=== PATIENT | male | born 1985 | race Caucasian/White ===

== ENCOUNTER 2017-03-22 17:13 | Emergency (ER) | payer MEDICAID, OTHER ==
[2017-03-22 17:27] LABS: ADD MAN DIFF? NO
[2017-03-22 17:29] LABS: WHITE BLOOD COUNT 5.8 10^3/ul (4.8-10.8)
[2017-03-22 17:29] LABS: BASOPHIL # 0.1 10^3/ul (0.0-0.1); EOSINOPHILS # 0.2 10^3/ul (0.0-0.5); EOSINOPHILS % 4.1 % (0.0-7.0); HEMATOCRIT 43.7 % (42.0-52.0); HEMOGLOBIN 15.4 g/dl (14.0-18.0); LYMPHOCYTES # 2.2 10^3/ul (0.8-2.9); LYMPHOCYTES % 38.2 % (15.0-51.0); MEAN CORPUSCULAR HEMOGLOBIN 32.6 pg (29.0-33.0); MEAN CORPUSCULAR HGB CONC 35.2 g/dl (32.0-37.0); MEAN CORPUSCULAR VOLUME 92.6 fl (82.0-101.0); MEAN PLATELET VOLUME 9.4 fl (7.4-10.4); MONOCYTE # 0.3 10^3/ul (0.3-0.9); MONOCYTES % 5.2 % (0.0-11.0); NEUTROPHILS % 51.3 % (39.0-77.0); PLATELET COUNT 355 10^3/UL (140-415); RED BLOOD COUNT 4.72 10^6/ul (4.70-6.10); RED CELL DISTRIBUTION WIDTH 12.7 % (11.5-14.5)
[2017-03-22] MEDS: SOD CHLORIDE 0.9% 1,000 ML IV (17:33)
[2017-03-22 17:54] LABS: ADD UMIC NO; UR ASCORBIC ACID NEGATIVE (NEGATIVE); UR BILIRUBIN (Dip) NEGATIVE (NEGATIVE); UR BLOOD (Dip) NEGATIVE (NEGATIVE); UR CLARITY CLEAR (CLEAR); UR COLOR STRAW (YELLOW); UR GLUCOSE (Dip) NEGATIVE (NEGATIVE); UR KETONES (Dip) NEGATIVE (NEGATIVE); UR LEUKOCYTE ESTERASE (Dip) NEGATIVE Leu/ul (NEGATIVE); UR NITRITE (Dip) NEGATIVE (NEGATIVE); UR SPECIFIC GRAVITY (Dip) 1.005 (1.003-1.030); UR TOTAL PROTEIN (Dip) NEGATIVE (NEGATIVE); UR UROBILINOGEN (Dip) NEGATIVE (NEGATIVE)
[2017-03-22] MEDS: ONDANSETRON 4 MG INJ IV (17:55)
[2017-03-22 17:58] LABS: ALANINE AMINOTRANSFERASE 31 IU/L (13-69); ALBUMIN 4.7 g/dl (3.3-4.9); ALBUMIN/GLOBULIN RATIO 1.34; ALKALINE PHOSPHATASE 89 IU/L (42-121); ANION GAP 20 (8-16); ASPARTATE AMINO TRANSFERASE 31 IU/L (15-46); BILIRUBIN,INDIRECT 0.2 mg/dl (0-1.1); BILIRUBIN,TOTAL 0.2 mg/dl (0.2-1.3); BLOOD UREA NITROGEN 6 mg/dl (7-20); CALCIUM 8.5 mg/dl (8.4-10.2); CARBON DIOXIDE 26 mmol/L (21-31); CHLORIDE 107 mmol/L (97-110); CREATININE 0.77 mg/dl (0.61-1.24); GLUCOSE 109 mg/dl (70-220); POTASSIUM 3.9 mmol/L (3.5-5.1); SODIUM 149 mmol/L (135-144); TOTAL PROTEIN 8.2 g/dl (6.1-8.1)
[2017-03-22 17:59] LABS: ACETAMINOPHEN < 10.0 ug/ml (10.0-30.0); SALICYLATE < 1.0 mg/dl (5.0-30.0)
[2017-03-22 18:08] LABS: AMPHETAMINE/METHAMPHETAMINE Negative (NEGATIVE)
[2017-03-22 18:09] LABS: BARBITURATES Negative (NEGATIVE); BENZODIAZEPINES Negative (NEGATIVE); CANNABINOIDS Negative (NEGATIVE); COCAINE Negative (NEGATIVE); OPIATES Negative (NEGATIVE)
== END 2017-03-22 19:13 | disposition home or self-care (01) ==
LOC: E/R 17:13
DX: F10.920 Alcohol use, unspecified with intoxication, uncomplicated (principal); G93.40 Encephalopathy, unspecified; R40.2142 Coma scale, eyes open, spontaneous, at arrival to emergency department; R40.2362 Coma scale, best motor response, obeys commands, at arrival to emergency department; R93.0 Abnormal findings on diagnostic imaging of skull and head, not elsewhere classified
CPT/HCPCS: 36415; 70450; 80053; 80306; 80307; 81003; 85025; 96374; 99285-25

== ENCOUNTER 2018-02-20 20:02 | Inpatient (IN) | payer MEDICAID ==
[2018-02-20] MEDS ORDERED: NALOXONE (0.4 MG/ML) INJ (20:06)
[2018-02-20] MEDS: ETOMIDATE 20 MG INJ IV (20:15)
[2018-02-20 20:29] LABS: ADD MAN DIFF? NO
[2018-02-20 20:33] LABS: WHITE BLOOD COUNT 20.2 10^3/ul (4.8-10.8)
[2018-02-20 20:33] LABS: HEMATOCRIT 46.6 % (42.0-52.0); HEMOGLOBIN 15.1 g/dl (14.0-18.0); MEAN CORPUSCULAR HEMOGLOBIN 32.5 pg (29.0-33.0); MEAN CORPUSCULAR HGB CONC 32.4 g/dl (32.0-37.0); MEAN CORPUSCULAR VOLUME 100.2 fl (82.0-101.0); MEAN PLATELET VOLUME 10.2 fl (7.4-10.4); NUCLEATED RED BLOOD CELLS% 0.1 /100WBC (0.0-0.0); PLATELET COUNT 229 10^3/UL (140-415); POSITIVE DIFF @See below; RED BLOOD COUNT 4.65 10^6/ul (4.70-6.10); RED CELL DISTRIBUTION WIDTH 13.2 % (11.5-14.5)
[2018-02-20] MEDS: CEFEPIME 2GM/50 ML (PMX) 50 ML IVPB (20:43)
[2018-02-20] MEDS: SODIUM CHLORIDE 0.9% 1L BAG IV* (20:43)
[2018-02-20 20:49] LABS: ADD UMIC YES; UR ASCORBIC ACID NEGATIVE (NEGATIVE); UR BILIRUBIN (Dip) NEGATIVE (NEGATIVE); UR BLOOD (Dip) NEGATIVE (NEGATIVE); UR CLARITY SLIGHTLY CLOUDY (CLEAR); UR COLOR YELLOW (YELLOW); UR GLUCOSE (Dip) 3+ mg/dL (NEGATIVE); UR KETONES (Dip) NEGATIVE (NEGATIVE); UR LEUKOCYTE ESTERASE (Dip) NEGATIVE Leu/ul (NEGATIVE); UR NITRITE (Dip) NEGATIVE (NEGATIVE); UR RBC 0 /HPF (0-5); UR SPECIFIC GRAVITY (Dip) 1.018 (1.003-1.030); UR TOTAL PROTEIN (Dip) 1+ mg/dl (NEGATIVE); UR UROBILINOGEN (Dip) NEGATIVE (NEGATIVE); UR WBC 1 /HPF (0-5)
[2018-02-20 20:51] LABS: ALBUMIN 3.3 g/dl (3.3-4.9); ALBUMIN/GLOBULIN RATIO 1.17; ALKALINE PHOSPHATASE 101 IU/L (42-121); ANION GAP 20 (5-13); BILIRUBIN,INDIRECT 0.2 mg/dl (0-1.1); BILIRUBIN,TOTAL 0.2 mg/dl (0.2-1.3); BLOOD UREA NITROGEN 27 mg/dl (7-20); CALCIUM 7.3 mg/dl (8.4-10.2); CARBON DIOXIDE 13 mmol/L (21-31); CHLORIDE 115 mmol/L (97-110); CREATININE 2.91 mg/dl (0.61-1.24); Estimated GFR 25 mL/min (>60); GLUCOSE 157 mg/dl (70-220); SODIUM 148 mmol/L (135-144); TOTAL PROTEIN 6.1 g/dl (6.1-8.1)
[2018-02-20 20:53] LABS: ACETAMINOPHEN < 10.0 ug/ml (10.0-30.0)
[2018-02-20 20:54] LABS: SALICYLATE < 1.0 mg/dl (5.0-30.0)
[2018-02-20 20:58] LABS: AMPHETAMINE/METHAMPHETAMINE Positive (NEGATIVE); BARBITURATES Negative (NEGATIVE); BENZODIAZEPINES Negative (NEGATIVE); CANNABINOIDS Positive (NEGATIVE); COCAINE Negative (NEGATIVE); OPIATES Positive (NEGATIVE)
[2018-02-20] MEDS: ROCURONIUM 50 MG INJ IV (20:58)
[2018-02-20] MEDS: VANCOMYCIN 1 GM (PMX) 250 ML IVPB (21:24)
[2018-02-20] MEDS: MIDAZOLAM 1 MG/ML 2 ML INJ IV (21:24)
[2018-02-20 21:27] LABS: ALANINE AMINOTRANSFERASE 5039 IU/L (13-69); ASPARTATE AMINO TRANSFERASE 6223 IU/L (15-46); CREATINE KINASE 9300 IU/L (23-200)
[2018-02-20 21:51] LABS: AADO2 Arterial 580.3 mmHg (7.0-24.0); Allen Test ACCEPTAB; Arterial Base Excess -18.9 mmol/L (-3.0-3); Arterial Blood Gas Oxygen Sat 91.2 mmHG (95.0-98.0); Arterial COHb 0.1 % (0.0-3.0); Arterial Fraction of Oxyhgb 90.8 % (93.0-99.0); Arterial HCO3 11.9 mmol/L (22.0-26.0); Arterial MetHb 0.3 % (0.0-1.5); Arterial pCO2 47.1 mmhg (35-45); MODE VENT - AC; Site Right Radial
[2018-02-20] MEDS ORDERED: ALBUTEROL HFA 8 GM INHALER INH (22:00)
[2018-02-20] MEDS ORDERED: IPRATROPIUM (HFA) 12.9 GM INHALER INH (22:00)
[2018-02-20 22:05] LABS: PLATELET COUNT 184 10^3/UL (140-415)
[2018-02-20 22:11] LABS: INR 2.72; PROTIME 29.6 Sec (11.9-14.9); PT RATIO 2.3
[2018-02-20 22:12] LABS: PARTIAL THROMBOPLASTIN TIME 39.9 Sec (23.0-35.0)
[2018-02-20 22:20] LABS: FIBRIN SPLIT PRODUCT >10 and <40 ug/ml (<10)
[2018-02-20 22:30] LABS: D-DIMER 8363.85 ng/ml (<460)
[2018-02-20 22:36] LABS: MAGNESIUM 2.6 mg/dl (1.7-2.5)
[2018-02-20 22:37] LABS: BAND NEUTROPHILS % (M) 25 % (0-4); LYMPHOCYTES % (M) 5 % (15-51); METAMYELOCYTES #M 0.4 10^3/ul (0.0-0.0); METAMYELOCYTES %M 2 % (0-0); MONOCYTE #M 0.6 10^3/ul (0.3-0.9); MONOCYTES % (M) 3 % (0-11); PLATELET ESTIMATE NORMAL; POIKILOCYTOSIS 1+ (0-0); REACTIVE LYMPHOCYTES #M 0.8 10^3/ul (0.0-0.0); REACTIVE LYMPHOCYTES% (M) 4 % (0-0); SEG NEUT #M 13.3 10^3/ul (1.6-7.5); SEGMENTED NEUTROPHILS (M) % 61 % (39-77); SMUDGE%M 11 % (0-0)
[2018-02-20] MEDS: POTASSIUM CHLORIDE 100 ML IVPB (22:38)
[2018-02-20] MEDS: PANTOPRAZOLE 40 MG INJ IV (22:38)
[2018-02-20] MEDS: SOD CHLORIDE 0.9% 1,000 ML IV ×2 (22:39→23:26)
[2018-02-20 23:07] LABS: THROMBIN TIME 18.8 SEC (13.8-19.1)
[2018-02-20 23:12] LABS: HAAIG REFLEX REFLEX FILED
[2018-02-20] MEDS: MIDAZOLAM (DRIP) 50 mg/50 mL 50 ML IV (23:27)
[2018-02-20 23:34] LABS: AADO2 Arterial 580.9 mmHg (7.0-24.0); Allen Test ACCEPTAB; Arterial Base Excess -17.9 mmol/L (-3.0-3); Arterial Blood Gas Oxygen Sat 90.6 mmHG (95.0-98.0); Arterial COHb 0.3 % (0.0-3.0); Arterial Fraction of Oxyhgb 90.1 % (93.0-99.0); Arterial HCO3 12.9 mmol/L (22.0-26.0); Arterial MetHb 0.3 % (0.0-1.5); MODE VENT - AC; Site Left Radial
[2018-02-20 23:52] LABS: HEPATITIS B SURFACE ANTIGEN NEGATIVE (NEGATIVE)
[2018-02-21] MEDS ORDERED: VANCOMYCIN IV PER PHARMACY XX
[2018-02-21] MEDS: FENTAnyl 50 MCG/ML VIAL IV (00:09)
[2018-02-21 00:10] LABS: HEPATITIS B CORE ANTIBODY NEGATIVE (NEGATIVE); HEPATITIS C VIRAL ANTIBODY NEGATIVE (NEGATIVE)
[2018-02-21] MEDS: INSULIN ASPART [NOVOLOG] 3 ML PEN SC ×6 (01:00→20:39)
[2018-02-21 01:12] LABS: LACTIC ACID 4.5 mmol/L (0.5-2.0)
[2018-02-21] MEDS: POTASSIUM CHLORIDE 100 ML IVPB ×5 (02:00→07:00)
[2018-02-21] MEDS ORDERED: ACCU-CHEK XX (02:00)
[2018-02-21] MEDS: SOD CHLORIDE 0.9% 1,000 ML IV ×5 (02:00→21:30)
[2018-02-21 02:24] LABS: CK INDEX 0.7; CREATINE KINASE 66598 IU/L (23-200)
[2018-02-21 02:43] LABS: AADO2 Arterial 531.5 mmHg (7.0-24.0); Allen Test ACCEPTAB; Arterial Base Excess -14.5 mmol/L (-3.0-3); Arterial Blood Gas Oxygen Sat 97.9 mmHG (95.0-98.0); Arterial COHb 0.3 % (0.0-3.0); Arterial Fraction of Oxyhgb 97.3 % (93.0-99.0); Arterial HCO3 13.8 mmol/L (22.0-26.0); Arterial MetHb 0.3 % (0.0-1.5); Arterial pCO2 40.2 mmhg (35-45); MODE VENT - AC; Site Right Radial
[2018-02-21] MEDS: ALBUMIN HUMAN 25% 100 ML IV ×2 (02:52→03:30)
[2018-02-21 03:42] LABS: LACTIC ACID 2.7 mmol/L (0.5-2.0)
[2018-02-21] MEDS: PIPER-TAZO 3.375 GM IV (PMX) 100 ML IVPB ×4 (04:00→22:49)
[2018-02-21] MEDS: THIAMINE 200 MG INJ IM (04:00)
[2018-02-21 05:03] LABS: ABNORMAL IP MESSAGE 1; HEMATOCRIT 43.4 % (42.0-52.0); HEMOGLOBIN 14.3 g/dl (14.0-18.0); MEAN CORPUSCULAR HEMOGLOBIN 32.4 pg (29.0-33.0); MEAN CORPUSCULAR HGB CONC 32.9 g/dl (32.0-37.0); MEAN CORPUSCULAR VOLUME 98.4 fl (82.0-101.0); PLATELET COUNT 113 10^3/UL (140-415); POSITIVE DIFF @See below; RED BLOOD COUNT 4.41 10^6/ul (4.70-6.10); RED CELL DISTRIBUTION WIDTH 12.9 % (11.5-14.5)
[2018-02-21 05:03] LABS: WHITE BLOOD COUNT 21.2 10^3/ul (4.8-10.8)
[2018-02-21] MEDS: MIDAZOLAM (DRIP) 50 mg/50 mL 50 ML IV (05:11)
[2018-02-21 05:25] LABS: ADD MAN DIFF? YES
[2018-02-21 05:26] LABS: PLATELET COUNT 113 10^3/UL (140-415)
[2018-02-21 05:29] LABS: INR 2.64; PROTIME 28.9 Sec (11.9-14.9); PT RATIO 2.3
[2018-02-21 05:36] LABS: ALBUMIN 3.3 g/dl (3.3-4.9); ALBUMIN/GLOBULIN RATIO 1.26; ALKALINE PHOSPHATASE 85 IU/L (42-121); ANION GAP 14 (5-13); BILIRUBIN,INDIRECT 0.5 mg/dl (0-1.1); BILIRUBIN,TOTAL 0.5 mg/dl (0.2-1.3); BLOOD UREA NITROGEN 42 mg/dl (7-20); CALCIUM 6.8 mg/dl (8.4-10.2); CARBON DIOXIDE 15 mmol/L (21-31); CHLORIDE 120 mmol/L (97-110); CREATININE 2.97 mg/dl (0.61-1.24); Estimated GFR 25 mL/min (>60); GLUCOSE 182 mg/dl (70-220); POTASSIUM 5.5 mmol/L (3.5-5.1); SODIUM 149 mmol/L (135-144); TOTAL PROTEIN 5.9 g/dl (6.1-8.1)
[2018-02-21 05:46] LABS: PARTIAL THROMBOPLASTIN TIME 37.4 Sec (23.0-35.0)
[2018-02-21 05:47] LABS: THROMBIN TIME 18.1 SEC (13.8-19.1)
[2018-02-21 06:11] LABS: LACTIC ACID 2.4 mmol/L (0.5-2.0)
[2018-02-21] MEDS: PANTOPRAZOLE 40 MG INJ IV ×2 (06:16→18:09)
[2018-02-21 06:19] LABS: D-DIMER > 10000.00 ng/ml (<460)
[2018-02-21 06:20] LABS: INR 2.64; PROTIME 28.9 Sec (11.9-14.9); PT RATIO 2.3
[2018-02-21 06:40] LABS: ANISOCYTOSIS 1+ (0-0); BAND NEUTROPHILS #M 2.3 10^3/ul (0.0-0.6); BAND NEUTROPHILS % (M) 11 % (0-4); GIANT THROMBO% (M) 1 % (0-0); LYMPHOCYTES #M 1.2 10^3/ul (0.8-2.9); LYMPHOCYTES % (M) 6 % (15-51); MICROCYTOSIS 1+ (0-0); MONOCYTE #M 0.4 10^3/ul (0.3-0.9); MONOCYTES % (M) 2 % (0-11); PLATELET ESTIMATE DECREASED; SEG NEUT #M 17.7 10^3/ul (1.6-7.5); SEGMENTED NEUTROPHILS (M) % 81 % (39-77); SMUDGE%M 1 % (0-0)
[2018-02-21 07:12] LABS: FIBRIN SPLIT PRODUCT >40 and <80 ug/ml (<10)
[2018-02-21 08:06] LABS: POTASSIUM 6.6 mmol/L (3.5-5.1)
[2018-02-21] MEDS: FENTAnyl (DRIP) 1000 mcg/100mL 100 ML IV ×2 (08:15→22:48)
[2018-02-21] MEDS: NA POLYST SULFON 15 GM/60 ML BTL PO (08:21)
[2018-02-21 08:32] LABS: CK INDEX 0.9; CREATINE KINASE 88413 IU/L (23-200)
[2018-02-21 08:55] LABS: AADO2 Arterial 255.8 mmHg (7.0-24.0); Allen Test ACCEPTAB; Arterial Base Excess -17.9 mmol/L (-3.0-3); Arterial Blood Gas Oxygen Sat 99.1 mmHG (95.0-98.0); Arterial COHb 0.3 % (0.0-3.0); Arterial Fraction of Oxyhgb 97.8 % (93.0-99.0); Arterial HCO3 10.2 mmol/L (22.0-26.0); Arterial pCO2 31.8 mmhg (35-45); MODE VENT - AC; Site Right Radial
[2018-02-21] MEDS: INSULIN REGULAR, HUMAN 100 UNIT/1 ML 3ML VIAL IVP (09:08)
[2018-02-21] MEDS: DEXTROSE 50% 50 ML SYRINGE IV (09:09)
[2018-02-21] MEDS ORDERED: NA BICARBONATE 8.4% 50 ML SYG (09:23)
[2018-02-21] MEDS: NA BICARBONATE 8.4% 50 ML SYG IV (09:30)
[2018-02-21 09:57] LABS: ALANINE AMINOTRANSFERASE 6218 IU/L (13-69)
[2018-02-21 10:19] LABS: ASPARTATE AMINO TRANSFERASE > 7500 IU/L (15-46)
[2018-02-21] MEDS: SODIUM BICARBONATE (IV ADD) 100 MEQ in DEXTROSE 5% 1,000 ML IV ×2 (11:08→20:28)
[2018-02-21 12:44] LABS: ANION GAP 13 (5-13); BLOOD UREA NITROGEN 52 mg/dl (7-20); CALCIUM 6.1 mg/dl (8.4-10.2); CARBON DIOXIDE 15 mmol/L (21-31); CHLORIDE 116 mmol/L (97-110); CREATININE 3.28 mg/dl (0.61-1.24); Estimated GFR 22 mL/min (>60); GLUCOSE 269 mg/dl (70-220); POTASSIUM 5.5 mmol/L (3.5-5.1); SODIUM 144 mmol/L (135-144)
[2018-02-21 12:58] LABS: LACTIC ACID 5.2 mmol/L (0.5-2.0)
[2018-02-21 13:12] LABS: CK-MB > 800.00 ng/ml (0.0-2.4)
[2018-02-21 13:36] LABS: CK INDEX 0.8
[2018-02-21 15:05] LABS: AADO2 Arterial 82.6 mmHg (7.0-24.0); Allen Test ACCEPTAB; Arterial Base Excess -7.9 mmol/L (-3.0-3); Arterial Blood Gas Oxygen Sat 96.5 mmHG (95.0-98.0); Arterial COHb 0 % (0.0-3.0); Arterial Fraction of Oxyhgb 96.3 % (93.0-99.0); Arterial HCO3 17.8 mmol/L (22.0-26.0); Arterial MetHb 0.2 % (0.0-1.5); Arterial pCO2 37.4 mmhg (35-45); MODE VENT - AC; Site Right Radial
[2018-02-21] MEDS ORDERED: HEPARIN 5,000 UNIT/0.5 ML VIAL ×2 (16:01→22:48)
[2018-02-21] MEDS ORDERED: GLUCOSE GEL 15 GRAM TUBE BUCCAL (16:30)
[2018-02-21] MEDS ORDERED: GLUCAGON 1 MG INJ IM (16:30)
[2018-02-21] MEDS ORDERED: GLUCOSE GEL 15 GRAM TUBE PO ×2 (16:30)
[2018-02-21] MEDS ORDERED: DEXTROSE 50% 50 ML SYRINGE IV ×2 (16:30)
[2018-02-21] MEDS: HEPARIN 5,000 UNIT/1 ML VIAL SC ×2 (16:53→22:50)
[2018-02-21] MEDS: HEPARIN 1000 UNITS/ML 10 ML INJ CATHETER (17:30)
[2018-02-21 19:43] LABS: LACTIC ACID 4.2 mmol/L (0.5-2.0)
[2018-02-21 20:12] LABS: CK-MB > 400.00 ng/ml (0.0-2.4)
[2018-02-21] MEDS: VANCOMYCIN 1 GM 250 ML IVPB (20:28)
[2018-02-21 21:16] LABS: CK INDEX 0.3; CREATINE KINASE 114684 IU/L (23-200)
[2018-02-21 23:58] LABS: AADO2 Arterial 80.4 mmHg (7.0-24.0); Allen Test ACCEPTAB; Arterial Base Excess -1.4 mmol/L (-3.0-3); Arterial Blood Gas Oxygen Sat 97.4 mmHG (95.0-98.0); Arterial COHb 0.1 % (0.0-3.0); Arterial Fraction of Oxyhgb 97.2 % (93.0-99.0); Arterial HCO3 21.4 mmol/L (22.0-26.0); Arterial MetHb 0.1 % (0.0-1.5); Arterial pCO2 31.6 mmhg (35-45); MODE VENT - AC; Site Right Radial
[2018-02-22] MEDS: SOD CHLORIDE 0.9% 1,000 ML IV ×4 (00:32→21:19)
[2018-02-22] MEDS: INSULIN ASPART [NOVOLOG] 3 ML PEN SC ×6 (01:48→21:00)
[2018-02-22 01:56] LABS: LACTIC ACID 4.1 mmol/L (0.5-2.0)
[2018-02-22] MEDS: THIAMINE 200 MG INJ IM (02:52)
[2018-02-22] MEDS ORDERED: HEPARIN 5,000 UNIT/0.5 ML VIAL ×2 (05:02→13:48)
[2018-02-22] MEDS: PANTOPRAZOLE 40 MG INJ IV ×2 (05:07→18:16)
[2018-02-22] MEDS: PIPER-TAZO 3.375 GM IV (PMX) 100 ML IVPB ×3 (05:08→21:14)
[2018-02-22] MEDS: HEPARIN 5,000 UNIT/1 ML VIAL SC ×3 (05:10→21:16)
[2018-02-22 05:27] LABS: HEMATOCRIT 44.4 % (42.0-52.0); HEMOGLOBIN 15.3 g/dl (14.0-18.0); MEAN CORPUSCULAR HEMOGLOBIN 32.1 pg (29.0-33.0); MEAN CORPUSCULAR HGB CONC 34.5 g/dl (32.0-37.0); MEAN CORPUSCULAR VOLUME 93.3 fl (82.0-101.0); MEAN PLATELET VOLUME 11.1 fl (7.4-10.4); NUCLEATED RED BLOOD CELLS% 0.1 /100WBC (0.0-0.0); PLATELET COUNT 126 10^3/UL (140-415); POSITIVE DIFF @See below; RED BLOOD COUNT 4.76 10^6/ul (4.70-6.10)
[2018-02-22 05:27] LABS: WHITE BLOOD COUNT 16.9 10^3/ul (4.8-10.8)
[2018-02-22 05:46] LABS: URIC ACID 8.2 mg/dl (3.1-7.9)
[2018-02-22 05:53] LABS: ALBUMIN 2.2 g/dl (3.3-4.9); ALKALINE PHOSPHATASE 73 IU/L (42-121); ANION GAP 11 (5-13); BLOOD UREA NITROGEN 44 mg/dl (7-20); CARBON DIOXIDE 28 mmol/L (21-31); CHLORIDE 103 mmol/L (97-110); Estimated GFR 19 mL/min (>60); GLUCOSE 151 mg/dl (70-220); SODIUM 142 mmol/L (135-144); TOTAL PROTEIN 4.4 g/dl (6.1-8.1)
[2018-02-22 05:56] LABS: POTASSIUM 3.2 mmol/L (3.5-5.1)
[2018-02-22 05:57] LABS: CALCIUM 5.5 mg/dl (8.4-10.2)
[2018-02-22] MEDS: SODIUM BICARBONATE (IV ADD) 100 MEQ in DEXTROSE 5% 1,000 ML IV (06:00)
[2018-02-22 06:06] LABS: ADD MAN DIFF? YES
[2018-02-22 06:07] LABS: INR 2.47; PROTIME 27.4 Sec (11.9-14.9); PT RATIO 2.1
[2018-02-22] MEDS: POTASSIUM CHLORIDE 50 ML IVPB (06:34)
[2018-02-22 07:08] LABS: PLATELET COUNT 126 10^3/UL (140-415)
[2018-02-22 07:13] LABS: INR 2.45; PARTIAL THROMBOPLASTIN TIME 38.5 Sec (23.0-35.0); PROTIME 27.2 Sec (11.9-14.9); PT RATIO 2.1; THROMBIN TIME 18.8 SEC (13.8-19.1)
[2018-02-22 07:21] LABS: AADO2 Arterial 66.3 mmHg (7.0-24.0); Allen Test ACCEPTAB; Arterial Base Excess -0.1 mmol/L (-3.0-3); Arterial Blood Gas Oxygen Sat 97.3 mmHG (95.0-98.0); Arterial COHb 0.3 % (0.0-3.0); Arterial Fraction of Oxyhgb 96.9 % (93.0-99.0); Arterial HCO3 24.3 mmol/L (22.0-26.0); Arterial MetHb 0.1 % (0.0-1.5); Arterial pCO2 39.1 mmhg (35-45); MODE VENT - AC; Site Right Radial
[2018-02-22 07:33] LABS: D-DIMER > 10000.00 ng/ml (<460)
[2018-02-22 08:03] LABS: BAND NEUTROPHILS #M 7.7 10^3/ul (0.0-0.6); BAND NEUTROPHILS % (M) 46 % (0-4); LYMPHOCYTES #M 0.5 10^3/ul (0.8-2.9); LYMPHOCYTES % (M) 3 % (15-51); MONOCYTE #M 0.3 10^3/ul (0.3-0.9); MONOCYTES % (M) 2 % (0-11); PLATELET ESTIMATE DECREASED; REACTIVE LYMPHOCYTES #M 0.3 10^3/ul (0.0-0.0); REACTIVE LYMPHOCYTES% (M) 2 % (0-0); SEG NEUT #M 9.2 10^3/ul (1.6-7.5); SEGMENTED NEUTROPHILS (M) % 47 % (39-77); SMUDGE%M 5 % (0-0)
[2018-02-22] MEDS: CALCIUM GLUCONATE 10% 1 GM in DEXTROSE 5% 100 ML IVPB (08:28)
[2018-02-22 08:38] LABS: FIBRIN SPLIT PRODUCT >80 and <160 ug/ml (<10)
[2018-02-22] MEDS: FUROSEMIDE 40 MG INJ IV (09:23)
[2018-02-22] MEDS: BUMETANIDE 25 MG in DEXTROSE 5% 150 ML IV (10:07)
[2018-02-22 11:01] LABS: ASPARTATE AMINO TRANSFERASE 6708 IU/L (15-46)
[2018-02-22 13:56] LABS: AADO2 Arterial 102.2 mmHg (7.0-24.0); Allen Test ACCEPTAB; Arterial Base Excess -0.6 mmol/L (-3.0-3); Arterial Blood Gas Oxygen Sat 93.2 mmHG (95.0-98.0); Arterial COHb 0.3 % (0.0-3.0); Arterial Fraction of Oxyhgb 92.8 % (93.0-99.0); Arterial HCO3 23.4 mmol/L (22.0-26.0); Arterial MetHb 0.1 % (0.0-1.5); Arterial pCO2 36.6 mmhg (35-45); Blood Gas PS 10; MODE VENT - CPAP; Site Right Radial
[2018-02-22 14:53] LABS: CREATINE KINASE 86507 IU/L (23-200)
[2018-02-22 20:04] LABS: VANCOMYCIN,TROUGH 16.7 ug/ml (10.0-20.0)
[2018-02-22] MEDS: VANCOMYCIN 1 GM 250 ML IVPB (21:14)
[2018-02-23] MEDS: INSULIN ASPART [NOVOLOG] 3 ML PEN SC ×6 (01:00→21:00)
[2018-02-23] MEDS: PIPER-TAZO 3.375 GM IV (PMX) 100 ML IVPB (05:05)
[2018-02-23] MEDS: PANTOPRAZOLE 40 MG INJ IV ×2 (05:06→17:24)
[2018-02-23] MEDS: SOD CHLORIDE 0.9% 1,000 ML IV (05:06)
[2018-02-23] MEDS: HEPARIN 5,000 UNIT/1 ML VIAL SC (05:16)
[2018-02-23] MEDS: THIAMINE 200 MG INJ IM (05:28)
[2018-02-23 05:33] LABS: HEMATOCRIT 34.6 % (42.0-52.0); HEMOGLOBIN 11.9 g/dl (14.0-18.0); MEAN CORPUSCULAR HEMOGLOBIN 32.3 pg (29.0-33.0); MEAN CORPUSCULAR HGB CONC 34.4 g/dl (32.0-37.0); MEAN PLATELET VOLUME 11.5 fl (7.4-10.4); NUCLEATED RED BLOOD CELLS% 0.1 /100WBC (0.0-0.0); PLATELET COUNT 107 10^3/UL (140-415); POSITIVE DIFF @See below; RED BLOOD COUNT 3.68 10^6/ul (4.70-6.10); RED CELL DISTRIBUTION WIDTH 13.7 % (11.5-14.5)
[2018-02-23 05:33] LABS: WHITE BLOOD COUNT 17.3 10^3/ul (4.8-10.8)
[2018-02-23 05:54] LABS: INR 1.69; PROTIME 20.2 Sec (11.9-14.9); PT RATIO 1.6
[2018-02-23 06:07] LABS: ADD MAN DIFF? YES; ALBUMIN 1.9 g/dl (3.3-4.9); ALKALINE PHOSPHATASE 72 IU/L (42-121); TOTAL PROTEIN 3.8 g/dl (6.1-8.1)
[2018-02-23 06:08] LABS: INR 1.65; PARTIAL THROMBOPLASTIN TIME 37.2 Sec (23.0-35.0); PROTIME 19.9 Sec (11.9-14.9); PT RATIO 1.6
[2018-02-23 06:09] LABS: THROMBIN TIME 19.1 SEC (13.8-19.1)
[2018-02-23 06:30] LABS: ALBUMIN 2.2 g/dl (3.3-4.9); ALBUMIN/GLOBULIN RATIO 1.04; ALKALINE PHOSPHATASE 71 IU/L (42-121); ANION GAP 12 (5-13); BILIRUBIN,INDIRECT 0.9 mg/dl (0-1.1); BLOOD UREA NITROGEN 70 mg/dl (7-20); CARBON DIOXIDE 24 mmol/L (21-31); CHLORIDE 105 mmol/L (97-110); CREATININE 6.35 mg/dl (0.61-1.24); Estimated GFR 10 mL/min (>60); GLUCOSE 125 mg/dl (70-220); POTASSIUM 3.5 mmol/L (3.5-5.1); SODIUM 141 mmol/L (135-144); TOTAL PROTEIN 4.3 g/dl (6.1-8.1)
[2018-02-23 06:39] LABS: ALANINE AMINOTRANSFERASE 2475 IU/L (13-69)
[2018-02-23 07:02] LABS: ALANINE AMINOTRANSFERASE 2366 IU/L (13-69); CALCIUM 5.5 mg/dl (8.4-10.2)
[2018-02-23 07:25] LABS: D-DIMER > 10000.00 ng/ml (<460)
[2018-02-23 08:15] LABS: ASPARTATE AMINO TRANSFERASE 3433 IU/L (15-46)
[2018-02-23 08:36] LABS: ASPARTATE AMINO TRANSFERASE 3433 IU/L (15-46)
[2018-02-23 09:01] LABS: FIBRIN SPLIT PRODUCT >80 and <160 ug/ml (<10)
[2018-02-23 09:09] LABS: PLATELET COUNT 107 10^3/UL (140-415)
[2018-02-23 09:15] LABS: BAND NEUTROPHILS #M 3.9 10^3/ul (0.0-0.6); BAND NEUTROPHILS % (M) 23 % (0-4); GIANT THROMBO% (M) 1 % (0-0); LYMPHOCYTES #M 1.2 10^3/ul (0.8-2.9); LYMPHOCYTES % (M) 7 % (15-51); MONOCYTE #M 0.5 10^3/ul (0.3-0.9); MONOCYTES % (M) 3 % (0-11); PLATELET ESTIMATE DECREASED; SEG NEUT #M 12.3 10^3/ul (1.6-7.5); SEGMENTED NEUTROPHILS (M) % 67 % (39-77); SMUDGE%M 2 % (0-0)
[2018-02-23 10:14] LABS: CREATINE KINASE 59481 IU/L (23-200)
[2018-02-23 10:50] LABS: AADO2 Arterial 83.1 mmHg (7.0-24.0); Allen Test ACCEPTAB; Arterial Base Excess -2.8 mmol/L (-3.0-3); Arterial Blood Gas Oxygen Sat 96.4 mmHG (95.0-98.0); Arterial COHb 0.1 % (0.0-3.0); Arterial Fraction of Oxyhgb 96.3 % (93.0-99.0); Arterial HCO3 20.9 mmol/L (22.0-26.0); Arterial MetHb 0 % (0.0-1.5); Arterial pCO2 33.2 mmhg (35-45); Blood Gas PS 10; MODE VENT - CPAP; Site Right Radial
[2018-02-23] MEDS: HEPARIN 1000 UNITS/ML 10 ML INJ CATHETER (15:51)
[2018-02-23] MEDS: BUMETANIDE 25 MG in DEXTROSE 5% 150 ML IV (16:46)
[2018-02-23] MEDS: PIPER-TAZO 2.25 GM (PMX) 50 ML IVPB ×2 (16:51→21:44)
[2018-02-23] MEDS ORDERED: RACEPINEPHRINE 2.25%(NEB) 0.5 ML AMP (16:52)
[2018-02-23] MEDS ORDERED: RACEPINEPHRINE 2.25%(NEB) 0.5 ML AMP HHN (17:00)
[2018-02-23] MEDS: METOPROLOL 25 MG TAB PO (21:44)
[2018-02-24] MEDS: INSULIN ASPART [NOVOLOG] 3 ML PEN SC ×6 (01:00→21:10)
[2018-02-24 05:18] LABS: WHITE BLOOD COUNT 16.5 10^3/ul (4.8-10.8)
[2018-02-24 05:18] LABS: ABNORMAL IP MESSAGE 1; HEMATOCRIT 32.9 % (42.0-52.0); HEMOGLOBIN 11.4 g/dl (14.0-18.0); MEAN CORPUSCULAR HEMOGLOBIN 32.3 pg (29.0-33.0); MEAN CORPUSCULAR HGB CONC 34.7 g/dl (32.0-37.0); MEAN CORPUSCULAR VOLUME 93.2 fl (82.0-101.0); MEAN PLATELET VOLUME 11.3 fl (7.4-10.4); NUCLEATED RED BLOOD CELLS% 0.1 /100WBC (0.0-0.0); PLATELET COUNT 103 10^3/UL (140-415); POSITIVE DIFF @See below; RED BLOOD COUNT 3.53 10^6/ul (4.70-6.10); RED CELL DISTRIBUTION WIDTH 13.3 % (11.5-14.5)
[2018-02-24 05:28] LABS: ADD MAN DIFF? YES
[2018-02-24 05:42] LABS: INR 1.41; PROTIME 17.5 Sec (11.9-14.9); PT RATIO 1.4
[2018-02-24 05:52] LABS: ALBUMIN 2.5 g/dl (3.3-4.9); ALBUMIN/GLOBULIN RATIO 1.04; ALKALINE PHOSPHATASE 94 IU/L (42-121); ANION GAP 13 (5-13); BILIRUBIN,INDIRECT 0.9 mg/dl (0-1.1); BILIRUBIN,TOTAL 0.9 mg/dl (0.2-1.3); BLOOD UREA NITROGEN 66 mg/dl (7-20); CALCIUM 6.4 mg/dl (8.4-10.2); CARBON DIOXIDE 25 mmol/L (21-31); CHLORIDE 104 mmol/L (97-110); CREATININE 6.82 mg/dl (0.61-1.24); Estimated GFR 9 mL/min (>60); GLUCOSE 123 mg/dl (70-220); POTASSIUM 3.5 mmol/L (3.5-5.1); SODIUM 142 mmol/L (135-144); TOTAL PROTEIN 4.9 g/dl (6.1-8.1)
[2018-02-24] MEDS: PANTOPRAZOLE 40 MG INJ IV (06:03)
[2018-02-24] MEDS: PIPER-TAZO 2.25 GM (PMX) 50 ML IVPB ×3 (06:03→21:07)
[2018-02-24 06:04] LABS: INR 1.41; PROTIME 17.5 Sec (11.9-14.9); PT RATIO 1.4
[2018-02-24 06:05] LABS: PARTIAL THROMBOPLASTIN TIME 33.7 Sec (23.0-35.0)
[2018-02-24 06:06] LABS: THROMBIN TIME 17.8 SEC (13.8-19.1)
[2018-02-24 06:08] LABS: PLATELET COUNT 103 10^3/UL (140-415)
[2018-02-24 06:15] LABS: ALANINE AMINOTRANSFERASE 1853 IU/L (13-69)
[2018-02-24 06:28] LABS: D-DIMER 7420.28 ng/ml (<460)
[2018-02-24 07:59] LABS: FIBRIN SPLIT PRODUCT >40 and <80 ug/ml (<10)
[2018-02-24 08:16] LABS: ANISOCYTOSIS 1+ (0-0); BAND NEUTROPHILS #M 1.9 10^3/ul (0.0-0.6); BAND NEUTROPHILS % (M) 12 % (0-4); LYMPHOCYTES #M 0.4 10^3/ul (0.8-2.9); LYMPHOCYTES % (M) 3 % (15-51); MONOCYTE #M 0.4 10^3/ul (0.3-0.9); MONOCYTES % (M) 3 % (0-11); PLATELET ESTIMATE DECREASED; POLYCHROMASIA 1+ (0-0); SEG NEUT #M 13.8 10^3/ul (1.6-7.5); SEGMENTED NEUTROPHILS (M) % 82 % (39-77); SMUDGE%M 5 % (0-0)
[2018-02-24] MEDS: METOPROLOL 25 MG TAB PO ×2 (10:03→20:58)
[2018-02-24 10:49] LABS: CREATINE KINASE 22767 IU/L (23-200)
[2018-02-24] MEDS: LANSOPRAZOLE 30 MG CAP GTB (18:09)
[2018-02-24] MEDS: BUMETANIDE 25 MG in DEXTROSE 5% 150 ML IV (19:53)
[2018-02-25] MEDS: INSULIN ASPART [NOVOLOG] 3 ML PEN SC ×6 (02:03→21:00)
[2018-02-25 05:19] LABS: ADD MAN DIFF? NO
[2018-02-25 05:22] LABS: ABNORMAL IP MESSAGE 1; BASOPHIL # 0.1 10^3/ul (0.0-0.1); BASOPHILS % 0.4 % (0.0-2.0); EOSINOPHILS # 0.3 10^3/ul (0.0-0.5); EOSINOPHILS % 1.9 % (0.0-7.0); HEMATOCRIT 32.1 % (42.0-52.0); HEMOGLOBIN 10.8 g/dl (14.0-18.0); LYMPHOCYTES # 0.7 10^3/ul (0.8-2.9); LYMPHOCYTES % 4.9 % (15.0-51.0); MEAN CORPUSCULAR HEMOGLOBIN 31.4 pg (29.0-33.0); MEAN CORPUSCULAR HGB CONC 33.6 g/dl (32.0-37.0); MEAN CORPUSCULAR VOLUME 93.3 fl (82.0-101.0); MEAN PLATELET VOLUME 11.7 fl (7.4-10.4); MONOCYTE # 0.9 10^3/ul (0.3-0.9); MONOCYTES % 6.3 % (0.0-11.0); NEUTROPHIL # 12.1 10^3/ul (1.6-7.5); NEUTROPHILS % 85.2 % (39.0-77.0); NUCLEATED RED BLOOD CELLS% 0.1 /100WBC (0.0-0.0); PLATELET COUNT 95 10^3/UL (140-415); POSITIVE DIFF @See below; RED BLOOD COUNT 3.44 10^6/ul (4.70-6.10); RED CELL DISTRIBUTION WIDTH 13.1 % (11.5-14.5)
[2018-02-25 05:22] LABS: WHITE BLOOD COUNT 14.2 10^3/ul (4.8-10.8)
[2018-02-25 05:32] LABS: ALBUMIN 2.6 g/dl (3.3-4.9); ALKALINE PHOSPHATASE 142 IU/L (42-121); BILIRUBIN,INDIRECT 0.5 mg/dl (0-1.1); BILIRUBIN,TOTAL 0.5 mg/dl (0.2-1.3); TOTAL PROTEIN 5.2 g/dl (6.1-8.1)
[2018-02-25 05:33] LABS: ALBUMIN 2.6 g/dl (3.3-4.9); ANION GAP 13 (5-13); BILIRUBIN,INDIRECT 0.5 mg/dl (0-1.1); BILIRUBIN,TOTAL 0.5 mg/dl (0.2-1.3); BLOOD UREA NITROGEN 97 mg/dl (7-20); CALCIUM 6.7 mg/dl (8.4-10.2); CARBON DIOXIDE 25 mmol/L (21-31); CHLORIDE 104 mmol/L (97-110); GLUCOSE 117 mg/dl (70-220); POTASSIUM 3.4 mmol/L (3.5-5.1); SODIUM 142 mmol/L (135-144)
[2018-02-25 05:43] LABS: INR 1.32; PROTIME 16.6 Sec (11.9-14.9); PT RATIO 1.3
[2018-02-25 05:49] LABS: Estimated GFR 6 mL/min (>60)
[2018-02-25 05:52] LABS: ALANINE AMINOTRANSFERASE 1368 IU/L (13-69); ASPARTATE AMINO TRANSFERASE 888 IU/L (15-46); CREATININE 9.67 mg/dl (0.61-1.24)
[2018-02-25 05:53] LABS: ALANINE AMINOTRANSFERASE 1368 IU/L (13-69); ASPARTATE AMINO TRANSFERASE 888 IU/L (15-46)
[2018-02-25 05:54] LABS: ALKALINE PHOSPHATASE 142 IU/L (42-121); TOTAL PROTEIN 5.2 g/dl (6.1-8.1)
[2018-02-25] MEDS: PIPER-TAZO 2.25 GM (PMX) 50 ML IVPB ×3 (05:58→21:38)
[2018-02-25] MEDS: LANSOPRAZOLE 30 MG CAP GTB ×2 (05:58→17:29)
[2018-02-25 06:46] LABS: CREATINE KINASE 10895 IU/L (23-200)
[2018-02-25] MEDS: METOPROLOL 25 MG TAB PO ×2 (08:56→21:39)
[2018-02-25] MEDS: HEPARIN 1000 UNITS/ML 10 ML INJ CATHETER (12:56)
[2018-02-25] MEDS: ONDANSETRON 4 MG INJ IV (21:47)
[2018-02-26] MEDS: INSULIN ASPART [NOVOLOG] 3 ML PEN SC ×6 (01:00→21:00)
[2018-02-26] MEDS: ACETAMINOPHEN 650MG/20.3ML CUP PO (03:57)
[2018-02-26] MEDS: PIPER-TAZO 2.25 GM (PMX) 50 ML IVPB ×3 (05:22→21:17)
[2018-02-26] MEDS: LANSOPRAZOLE 30 MG CAP GTB ×2 (05:22→17:18)
[2018-02-26 06:31] LABS: ABNORMAL IP MESSAGE 1; HEMATOCRIT 30.4 % (42.0-52.0); HEMOGLOBIN 10.5 g/dl (14.0-18.0); MEAN CORPUSCULAR HGB CONC 34.5 g/dl (32.0-37.0); MEAN CORPUSCULAR VOLUME 92.7 fl (82.0-101.0); MEAN PLATELET VOLUME 11.6 fl (7.4-10.4); PLATELET COUNT 115 10^3/UL (140-415); POSITIVE DIFF @See below; RED BLOOD COUNT 3.28 10^6/ul (4.70-6.10); RED CELL DISTRIBUTION WIDTH 12.9 % (11.5-14.5)
[2018-02-26 06:31] LABS: WHITE BLOOD COUNT 13.1 10^3/ul (4.8-10.8)
[2018-02-26 06:35] LABS: ADD MAN DIFF? YES
[2018-02-26 06:54] LABS: ALANINE AMINOTRANSFERASE 972 IU/L (13-69); ALBUMIN 2.2 g/dl (3.3-4.9); ALBUMIN/GLOBULIN RATIO 0.95; ALKALINE PHOSPHATASE 115 IU/L (42-121); ANION GAP 12 (5-13); ASPARTATE AMINO TRANSFERASE 528 IU/L (15-46); BILIRUBIN,INDIRECT 0.3 mg/dl (0-1.1); BILIRUBIN,TOTAL 0.3 mg/dl (0.2-1.3); BLOOD UREA NITROGEN 84 mg/dl (7-20); CALCIUM 6.8 mg/dl (8.4-10.2); CARBON DIOXIDE 26 mmol/L (21-31); CHLORIDE 101 mmol/L (97-110); CREATININE 7.99 mg/dl (0.61-1.24); Estimated GFR 8 mL/min (>60); GLUCOSE 137 mg/dl (70-220); POTASSIUM 3.9 mmol/L (3.5-5.1); SODIUM 139 mmol/L (135-144); TOTAL PROTEIN 4.5 g/dl (6.1-8.1)
[2018-02-26 07:29] LABS: GIANT THROMBO% (M) 1 % (0-0); LYMPHOCYTES #M 0.7 10^3/ul (0.8-2.9); LYMPHOCYTES % (M) 6 % (15-51); METAMYELOCYTES #M 0.1 10^3/ul (0.0-0.0); METAMYELOCYTES %M 1 % (0-0); MONOCYTE #M 0.5 10^3/ul (0.3-0.9); MONOCYTES % (M) 4 % (0-11); MYELOCYTES #M 0.1 10^3/ul (0.0-0.0); MYELOCYTES % (M) 1 % (0-0); PLATELET ESTIMATE DECREASED; PROMYELOCYTES #M 0.1 10^3/ul (0-0); PROMYELOCYTES % (M) 1 % (0-0); REACTIVE LYMPHOCYTES #M 0.2 10^3/ul (0.0-0.0); REACTIVE LYMPHOCYTES% (M) 2 % (0-0); SEGMENTED NEUTROPHILS (M) % 85 % (39-77); SMUDGE%M 3 % (0-0)
[2018-02-26 08:07] LABS: CREATINE KINASE 4911 IU/L (23-200)
[2018-02-26] MEDS: METOPROLOL 25 MG TAB PO ×2 (09:08→21:17)
[2018-02-26] MEDS ORDERED: Insulin NOVOLOG SS MILD Algorithm (SS with meals and bedtime) SC (21:00)
[2018-02-26] MEDS ORDERED: INSULIN ASPART [NOVOLOG] 3 ML PEN SC (21:00)
[2018-02-27] MEDS: ACCU-CHEK XX (02:00)
[2018-02-27] MEDS ORDERED: ACCUCHECK AT 2AM (Patients on SS coverage) XX (02:00)
[2018-02-27] MEDS: LANSOPRAZOLE 30 MG CAP GTB ×2 (05:55→18:00)
[2018-02-27] MEDS: PIPER-TAZO 2.25 GM (PMX) 50 ML IVPB ×3 (05:55→20:32)
[2018-02-27 07:00] LABS: ADD MAN DIFF? NO
[2018-02-27 07:20] LABS: WHITE BLOOD COUNT 17.1 10^3/ul (4.8-10.8)
[2018-02-27 07:20] LABS: BASOPHIL # 0.1 10^3/ul (0.0-0.1); BASOPHILS % 0.4 % (0.0-2.0); EOSINOPHILS # 1.1 10^3/ul (0.0-0.5); EOSINOPHILS % 6.1 % (0.0-7.0); HEMATOCRIT 32.4 % (42.0-52.0); HEMOGLOBIN 11.1 g/dl (14.0-18.0); LYMPHOCYTES # 1.2 10^3/ul (0.8-2.9); LYMPHOCYTES % 6.7 % (15.0-51.0); MEAN CORPUSCULAR HEMOGLOBIN 32.1 pg (29.0-33.0); MEAN CORPUSCULAR HGB CONC 34.3 g/dl (32.0-37.0); MEAN CORPUSCULAR VOLUME 93.6 fl (82.0-101.0); MEAN PLATELET VOLUME 12.1 fl (7.4-10.4); MONOCYTE # 1.1 10^3/ul (0.3-0.9); MONOCYTES % 6.6 % (0.0-11.0); NEUTROPHIL # 12.9 10^3/ul (1.6-7.5); NEUTROPHILS % 75.6 % (39.0-77.0); PLATELET COUNT 177 10^3/UL (140-415); RED BLOOD COUNT 3.46 10^6/ul (4.70-6.10)
[2018-02-27 07:50] LABS: CREATINE KINASE 2297 IU/L (23-200)
[2018-02-27] MEDS: INSULIN ASPART [NOVOLOG] 3 ML PEN SC ×4 (07:55→20:29)
[2018-02-27 07:57] LABS: ALANINE AMINOTRANSFERASE 706 IU/L (13-69); ALBUMIN 2.6 g/dl (3.3-4.9); ALKALINE PHOSPHATASE 93 IU/L (42-121); ANION GAP 15 (5-13); ASPARTATE AMINO TRANSFERASE 274 IU/L (15-46); BILIRUBIN,INDIRECT 0.3 mg/dl (0-1.1); BILIRUBIN,TOTAL 0.3 mg/dl (0.2-1.3); BLOOD UREA NITROGEN 108 mg/dl (7-20); CALCIUM 7.4 mg/dl (8.4-10.2); CARBON DIOXIDE 23 mmol/L (21-31); CHLORIDE 98 mmol/L (97-110); GLUCOSE 106 mg/dl (70-220); POTASSIUM 4.1 mmol/L (3.5-5.1); SODIUM 136 mmol/L (135-144); TOTAL PROTEIN 5.2 g/dl (6.1-8.1)
[2018-02-27 08:22] LABS: Estimated GFR 6 mL/min (>60)
[2018-02-27 08:24] LABS: CREATININE 10.11 mg/dl (0.61-1.24)
[2018-02-27 08:26] LABS: PHOSPHORUS 6.5 mg/dl (2.5-4.9)
[2018-02-27] MEDS: HEPARIN 1000 UNITS/ML 10 ML INJ CATHETER (11:29)
[2018-02-27] MEDS ORDERED: VANCOMYCIN IV PER PHARMACY XX (11:30)
[2018-02-27] MEDS: ACETAMINOPHEN 650MG/20.3ML CUP PO (14:13)
[2018-02-27] MEDS: METOPROLOL 25 MG TAB PO ×2 (14:14→20:30)
[2018-02-27] MEDS: VANCOMYCIN 1 GM 250 ML IVPB (14:15)
[2018-02-27 18:33] LABS: ADD UMIC YES; UR AMORPHOUS CRYSTAL FEW /HPF (NONE SEEN); UR ASCORBIC ACID NEGATIVE (NEGATIVE); UR BILIRUBIN (Dip) NEGATIVE (NEGATIVE); UR BLOOD (Dip) 3+ mg/dL (NEGATIVE); UR CLARITY CLOUDY (CLEAR); UR COLOR YELLOW (YELLOW); UR GLUCOSE (Dip) 2+ mg/dL (NEGATIVE); UR KETONES (Dip) NEGATIVE (NEGATIVE); UR LEUKOCYTE ESTERASE (Dip) NEGATIVE Leu/ul (NEGATIVE); UR MUCUS FEW /HPF (NONE SEEN); UR NITRITE (Dip) NEGATIVE (NEGATIVE); UR RBC 17 /HPF (0-5); UR SPECIFIC GRAVITY (Dip) 1.011 (1.003-1.030); UR TOTAL PROTEIN (Dip) 3+ mg/dl (NEGATIVE); UR UROBILINOGEN (Dip) NEGATIVE (NEGATIVE); UR WBC 1 /HPF (0-5)
[2018-02-28] MEDS: ACCU-CHEK XX (02:00)
[2018-02-28 05:58] LABS: ADD MAN DIFF? NO
[2018-02-28 06:12] LABS: BASOPHIL # 0.1 10^3/ul (0.0-0.1); BASOPHILS % 0.5 % (0.0-2.0); EOSINOPHILS # 1.1 10^3/ul (0.0-0.5); EOSINOPHILS % 6.3 % (0.0-7.0); HEMATOCRIT 31.5 % (42.0-52.0); HEMOGLOBIN 10.9 g/dl (14.0-18.0); LYMPHOCYTES # 1.1 10^3/ul (0.8-2.9); LYMPHOCYTES % 6.3 % (15.0-51.0); MEAN CORPUSCULAR HEMOGLOBIN 32.6 pg (29.0-33.0); MEAN CORPUSCULAR HGB CONC 34.6 g/dl (32.0-37.0); MEAN CORPUSCULAR VOLUME 94.3 fl (82.0-101.0); MEAN PLATELET VOLUME 11.8 fl (7.4-10.4); MONOCYTES % 5.9 % (0.0-11.0); NEUTROPHIL # 12.9 10^3/ul (1.6-7.5); NEUTROPHILS % 77.2 % (39.0-77.0); PLATELET COUNT 222 10^3/UL (140-415); RED BLOOD COUNT 3.34 10^6/ul (4.70-6.10)
[2018-02-28 06:12] LABS: WHITE BLOOD COUNT 16.7 10^3/ul (4.8-10.8)
[2018-02-28] MEDS: PIPER-TAZO 2.25 GM (PMX) 50 ML IVPB ×3 (06:18→21:42)
[2018-02-28] MEDS: LANSOPRAZOLE 30 MG CAP GTB ×2 (06:18→18:03)
[2018-02-28 06:40] LABS: ANION GAP 12 (5-13); BLOOD UREA NITROGEN 85 mg/dl (7-20); CALCIUM 7.4 mg/dl (8.4-10.2); CARBON DIOXIDE 25 mmol/L (21-31); CHLORIDE 99 mmol/L (97-110); GLUCOSE 112 mg/dl (70-220); POTASSIUM 4.4 mmol/L (3.5-5.1); SODIUM 136 mmol/L (135-144)
[2018-02-28 06:46] LABS: Estimated GFR 7 mL/min (>60)
[2018-02-28 06:47] LABS: CREATININE 8.74 mg/dl (0.61-1.24)
[2018-02-28 06:49] LABS: CREATINE KINASE 1037 IU/L (23-200)
[2018-02-28] MEDS: INSULIN ASPART [NOVOLOG] 3 ML PEN SC ×4 (07:55→21:00)
[2018-02-28] MEDS: METOPROLOL 25 MG TAB PO ×2 (08:54→21:41)
[2018-03-01] MEDS: ACCU-CHEK XX (02:00)
[2018-03-01] MEDS: PIPER-TAZO 2.25 GM (PMX) 50 ML IVPB ×3 (05:37→21:41)
[2018-03-01 06:10] LABS: ADD MAN DIFF? NO
[2018-03-01 06:23] LABS: WHITE BLOOD COUNT 19.5 10^3/ul (4.8-10.8)
[2018-03-01 06:23] LABS: BASOPHIL # 0.1 10^3/ul (0.0-0.1); BASOPHILS % 0.4 % (0.0-2.0); EOSINOPHILS % 5.2 % (0.0-7.0); LYMPHOCYTES # 1.1 10^3/ul (0.8-2.9); LYMPHOCYTES % 5.7 % (15.0-51.0); MEAN CORPUSCULAR HEMOGLOBIN 32.5 pg (29.0-33.0); MEAN CORPUSCULAR HGB CONC 34.5 g/dl (32.0-37.0); MEAN CORPUSCULAR VOLUME 94.2 fl (82.0-101.0); MONOCYTE # 1.1 10^3/ul (0.3-0.9); MONOCYTES % 5.8 % (0.0-11.0); NEUTROPHIL # 15.5 10^3/ul (1.6-7.5); NEUTROPHILS % 79.8 % (39.0-77.0); PLATELET COUNT 272 10^3/UL (140-415); RED BLOOD COUNT 3.08 10^6/ul (4.70-6.10); RED CELL DISTRIBUTION WIDTH 13.1 % (11.5-14.5)
[2018-03-01 06:40] LABS: VANCOMYCIN,RANDOM 19.7 ug/ml
[2018-03-01] MEDS: LANSOPRAZOLE 30 MG CAP GTB ×2 (06:51→17:10)
[2018-03-01 06:56] LABS: ANION GAP 15 (5-13); BLOOD UREA NITROGEN 104 mg/dl (7-20); CALCIUM 7.3 mg/dl (8.4-10.2); CARBON DIOXIDE 21 mmol/L (21-31); CHLORIDE 98 mmol/L (97-110); GLUCOSE 112 mg/dl (70-220); MAGNESIUM 2.7 mg/dl (1.7-2.5); POTASSIUM 4.3 mmol/L (3.5-5.1); SODIUM 134 mmol/L (135-144)
[2018-03-01 07:20] LABS: CREATININE 10.01 mg/dl (0.61-1.24); Estimated GFR 6 mL/min (>60)
[2018-03-01] MEDS: INSULIN ASPART [NOVOLOG] 3 ML PEN SC ×4 (08:00→20:50)
[2018-03-01] MEDS: METOPROLOL 25 MG TAB PO ×2 (08:53→20:48)
[2018-03-01 10:12] LABS: CREATINE KINASE 658 IU/L (23-200)
[2018-03-01] MEDS: ALBUMIN HUMAN 25% 50 ML IV (13:55)
[2018-03-01] MEDS: HEPARIN 1000 UNITS/ML 10 ML INJ CATHETER (15:36)
[2018-03-01] MEDS: HEPARIN 5,000 UNIT/1 ML VIAL SC ×2 (15:54→21:46)
[2018-03-01] MEDS: EPOETIN 10000 UNITS/ML (NON ESRD/NON ONCOLOGY) SC (17:12)
[2018-03-02] MEDS: ACCU-CHEK XX (01:28)
[2018-03-02] MEDS: LANSOPRAZOLE 30 MG CAP GTB ×2 (05:18→17:26)
[2018-03-02] MEDS: PIPER-TAZO 2.25 GM (PMX) 50 ML IVPB ×2 (05:18→13:33)
[2018-03-02] MEDS: HEPARIN 5,000 UNIT/1 ML VIAL SC ×3 (05:26→21:19)
[2018-03-02 06:06] LABS: ADD MAN DIFF? NO
[2018-03-02 06:09] LABS: WHITE BLOOD COUNT 19.5 10^3/ul (4.8-10.8)
[2018-03-02 06:09] LABS: BASOPHIL # 0.1 10^3/ul (0.0-0.1); BASOPHILS % 0.3 % (0.0-2.0); EOSINOPHILS # 0.9 10^3/ul (0.0-0.5); EOSINOPHILS % 4.4 % (0.0-7.0); HEMATOCRIT 27.9 % (42.0-52.0); HEMOGLOBIN 9.6 g/dl (14.0-18.0); LYMPHOCYTES # 1.1 10^3/ul (0.8-2.9); LYMPHOCYTES % 5.9 % (15.0-51.0); MEAN CORPUSCULAR HEMOGLOBIN 32.1 pg (29.0-33.0); MEAN CORPUSCULAR HGB CONC 34.4 g/dl (32.0-37.0); MEAN CORPUSCULAR VOLUME 93.3 fl (82.0-101.0); MEAN PLATELET VOLUME 11.9 fl (7.4-10.4); MONOCYTE # 1.2 10^3/ul (0.3-0.9); MONOCYTES % 6.1 % (0.0-11.0); NEUTROPHIL # 15.7 10^3/ul (1.6-7.5); NEUTROPHILS % 80.7 % (39.0-77.0); PLATELET COUNT 319 10^3/UL (140-415); RED BLOOD COUNT 2.99 10^6/ul (4.70-6.10); RED CELL DISTRIBUTION WIDTH 13.2 % (11.5-14.5)
[2018-03-02 06:40] LABS: IRON 35 ug/dl (35-150)
[2018-03-02 06:45] LABS: CREATINE KINASE 419 IU/L (23-200)
[2018-03-02 06:51] LABS: % IRON SATURATION 15 % SAT (22-52); TOTAL IRON BINDING CAPACITY 234 ug/dl (241-421)
[2018-03-02 06:57] LABS: ANION GAP 15 (5-13); BLOOD UREA NITROGEN 77 mg/dl (7-20); CALCIUM 7.6 mg/dl (8.4-10.2); CARBON DIOXIDE 25 mmol/L (21-31); CHLORIDE 96 mmol/L (97-110); GLUCOSE 109 mg/dl (70-220); PHOSPHORUS 9.2 mg/dl (2.5-4.9); POTASSIUM 4.3 mmol/L (3.5-5.1); SODIUM 136 mmol/L (135-144)
[2018-03-02 07:05] LABS: Estimated GFR 7 mL/min (>60)
[2018-03-02 07:12] LABS: CREATININE 8.32 mg/dl (0.61-1.24)
[2018-03-02] MEDS: INSULIN ASPART [NOVOLOG] 3 ML PEN SC ×4 (08:00→20:29)
[2018-03-02] MEDS: ASPIRIN 81 MG TAB PO (08:34)
[2018-03-02] MEDS: METOPROLOL 25 MG TAB PO ×2 (08:34→20:12)
[2018-03-02] MEDS: CALCIUM ACETATE 667 MG CAP GTB ×2 (11:10→17:18)
[2018-03-02] MEDS: ACETAMINOPHEN 650MG/20.3ML CUP PO ×2 (11:11→20:12)
[2018-03-02 12:18] LABS: AMMONIA 16 umol/l (9-30)
[2018-03-02] MEDS: VANCOMYCIN 1 GM 250 ML IVPB (21:19)
[2018-03-03] MEDS: ACCU-CHEK XX (01:35)
[2018-03-03] MEDS: LANSOPRAZOLE 30 MG CAP GTB ×2 (05:37→17:49)
[2018-03-03] MEDS: HEPARIN 5,000 UNIT/1 ML VIAL SC ×3 (05:41→21:15)
[2018-03-03 06:59] LABS: ADD MAN DIFF? NO
[2018-03-03 07:00] LABS: BASOPHIL # 0.1 10^3/ul (0.0-0.1); BASOPHILS % 0.5 % (0.0-2.0); EOSINOPHILS % 5.9 % (0.0-7.0); HEMATOCRIT 25.5 % (42.0-52.0); HEMOGLOBIN 8.9 g/dl (14.0-18.0); LYMPHOCYTES # 0.9 10^3/ul (0.8-2.9); LYMPHOCYTES % 5.4 % (15.0-51.0); MEAN CORPUSCULAR HEMOGLOBIN 32.5 pg (29.0-33.0); MEAN CORPUSCULAR HGB CONC 34.9 g/dl (32.0-37.0); MEAN CORPUSCULAR VOLUME 93.1 fl (82.0-101.0); MEAN PLATELET VOLUME 11.4 fl (7.4-10.4); MONOCYTES % 5.7 % (0.0-11.0); NEUTROPHIL # 13.4 10^3/ul (1.6-7.5); NEUTROPHILS % 80.2 % (39.0-77.0); PLATELET COUNT 342 10^3/UL (140-415); RED BLOOD COUNT 2.74 10^6/ul (4.70-6.10)
[2018-03-03 07:00] LABS: WHITE BLOOD COUNT 16.7 10^3/ul (4.8-10.8)
[2018-03-03 07:27] LABS: ANION GAP 18 (5-13); BLOOD UREA NITROGEN 95 mg/dl (7-20); CALCIUM 7.7 mg/dl (8.4-10.2); CARBON DIOXIDE 21 mmol/L (21-31); CHLORIDE 93 mmol/L (97-110); GLUCOSE 120 mg/dl (70-220); PHOSPHORUS 11.8 mg/dl (2.5-4.9); POTASSIUM 4.3 mmol/L (3.5-5.1); SODIUM 132 mmol/L (135-144)
[2018-03-03 07:34] LABS: Estimated GFR 6 mL/min (>60)
[2018-03-03 07:36] LABS: CREATININE 10.24 mg/dl (0.61-1.24)
[2018-03-03] MEDS: INSULIN ASPART [NOVOLOG] 3 ML PEN SC ×4 (08:00→21:00)
[2018-03-03] MEDS: HEPARIN 1000 UNITS/ML 10 ML INJ CATHETER (11:26)
[2018-03-03] MEDS: CALCIUM ACETATE 667 MG CAP GTB ×2 (13:15→17:49)
[2018-03-03] MEDS: ASPIRIN 81 MG TAB PO (13:15)
[2018-03-03] MEDS: METOPROLOL 25 MG TAB PO ×2 (13:16→21:09)
[2018-03-03] MEDS: EPOETIN 10000 UNITS/ML (NON ESRD/NON ONCOLOGY) SC (17:50)
[2018-03-04] MEDS: ACCU-CHEK XX (01:49)
[2018-03-04 05:30] LABS: ADD MAN DIFF? NO
[2018-03-04 05:37] LABS: BASOPHIL # 0.1 10^3/ul (0.0-0.1); BASOPHILS % 0.4 % (0.0-2.0); EOSINOPHILS # 0.7 10^3/ul (0.0-0.5); EOSINOPHILS % 4.6 % (0.0-7.0); HEMATOCRIT 24.9 % (42.0-52.0); HEMOGLOBIN 8.6 g/dl (14.0-18.0); LYMPHOCYTES % 6.2 % (15.0-51.0); MEAN CORPUSCULAR HEMOGLOBIN 32.5 pg (29.0-33.0); MEAN CORPUSCULAR HGB CONC 34.5 g/dl (32.0-37.0); MEAN PLATELET VOLUME 11.2 fl (7.4-10.4); MONOCYTE # 1.3 10^3/ul (0.3-0.9); MONOCYTES % 8.5 % (0.0-11.0); NEUTROPHIL # 12.2 10^3/ul (1.6-7.5); NEUTROPHILS % 78.2 % (39.0-77.0); PLATELET COUNT 421 10^3/UL (140-415); RED BLOOD COUNT 2.65 10^6/ul (4.70-6.10); RED CELL DISTRIBUTION WIDTH 13.2 % (11.5-14.5)
[2018-03-04 05:37] LABS: WHITE BLOOD COUNT 15.6 10^3/ul (4.8-10.8)
[2018-03-04] MEDS: LANSOPRAZOLE 30 MG CAP GTB (06:00)
[2018-03-04 06:01] LABS: ANION GAP 12 (5-13); BLOOD UREA NITROGEN 76 mg/dl (7-20); CALCIUM 7.7 mg/dl (8.4-10.2); CARBON DIOXIDE 23 mmol/L (21-31); CHLORIDE 96 mmol/L (97-110); GLUCOSE 111 mg/dl (70-220); POTASSIUM 4.5 mmol/L (3.5-5.1); SODIUM 131 mmol/L (135-144)
[2018-03-04 06:07] LABS: Estimated GFR 8 mL/min (>60)
[2018-03-04 06:08] LABS: CREATININE 8.17 mg/dl (0.61-1.24)
[2018-03-04] MEDS: HEPARIN 5,000 UNIT/1 ML VIAL SC ×3 (06:08→22:00)
[2018-03-04] MEDS: INSULIN ASPART [NOVOLOG] 3 ML PEN SC ×4 (08:00→21:00)
[2018-03-04] MEDS: CALCIUM ACETATE 667 MG CAP GTB ×3 (08:40→18:15)
[2018-03-04] MEDS: ASPIRIN 81 MG TAB PO (08:40)
[2018-03-04] MEDS: METOPROLOL 25 MG TAB PO ×2 (08:40→21:00)
[2018-03-04] MEDS: ALBUMIN HUMAN 25% 100 ML IV ×2 (11:04→11:59)
[2018-03-04] MEDS: HEPARIN 1000 UNITS/ML 10 ML INJ CATHETER (13:01)
[2018-03-04] MEDS: ACETAMINOPHEN 650MG/20.3ML CUP PO ×2 (13:03→21:34)
[2018-03-04] MEDS: SUCRALFATE (100 MG/ML) 10ML CUP PO ×2 (18:15→21:33)
[2018-03-04] MEDS: PANTOPRAZOLE 40 MG INJ IV (18:15)
[2018-03-05] MEDS: ACCU-CHEK XX (02:00)
[2018-03-05] MEDS: HEPARIN 5,000 UNIT/1 ML VIAL SC (06:00)
[2018-03-05] MEDS: PANTOPRAZOLE 40 MG INJ IV ×2 (06:20→17:26)
[2018-03-05 06:28] LABS: ADD MAN DIFF? NO
[2018-03-05 06:35] LABS: WHITE BLOOD COUNT 14.1 10^3/ul (4.8-10.8)
[2018-03-05 06:35] LABS: BASOPHILS % 0.3 % (0.0-2.0); EOSINOPHILS # 0.5 10^3/ul (0.0-0.5); EOSINOPHILS % 3.6 % (0.0-7.0); HEMATOCRIT 24.7 % (42.0-52.0); HEMOGLOBIN 8.4 g/dl (14.0-18.0); LYMPHOCYTES % 7.3 % (15.0-51.0); MEAN CORPUSCULAR HEMOGLOBIN 32.4 pg (29.0-33.0); MEAN CORPUSCULAR VOLUME 95.4 fl (82.0-101.0); MEAN PLATELET VOLUME 11.2 fl (7.4-10.4); MONOCYTE # 1.2 10^3/ul (0.3-0.9); MONOCYTES % 8.4 % (0.0-11.0); NEUTROPHIL # 11.1 10^3/ul (1.6-7.5); NEUTROPHILS % 78.4 % (39.0-77.0); PLATELET COUNT 456 10^3/UL (140-415); RED BLOOD COUNT 2.59 10^6/ul (4.70-6.10); RED CELL DISTRIBUTION WIDTH 13.5 % (11.5-14.5)
[2018-03-05 06:55] LABS: INR 1.14; PROTIME 14.8 Sec (11.9-14.9); PT RATIO 1.2
[2018-03-05 07:02] LABS: ANION GAP 11 (5-13); BLOOD UREA NITROGEN 62 mg/dl (7-20); CALCIUM 8.5 mg/dl (8.4-10.2); CARBON DIOXIDE 28 mmol/L (21-31); CHLORIDE 95 mmol/L (97-110); CREATININE 6.88 mg/dl (0.61-1.24); Estimated GFR 9 mL/min (>60); GLUCOSE 108 mg/dl (70-220); MAGNESIUM 2.5 mg/dl (1.7-2.5); PHOSPHORUS 7.8 mg/dl (2.5-4.9); POTASSIUM 4.9 mmol/L (3.5-5.1); SODIUM 134 mmol/L (135-144)
[2018-03-05 07:04] LABS: TROPONIN-I < 0.012 ng/ml (0.000-0.120)
[2018-03-05] MEDS: CALCIUM ACETATE 667 MG CAP GTB ×3 (08:00→17:26)
[2018-03-05] MEDS ORDERED: INSULIN ASPART [NOVOLOG] 3 ML PEN SC (09:00)
[2018-03-05] MEDS: ASPIRIN 81 MG TAB PO (09:00)
[2018-03-05] MEDS: SUCRALFATE (100 MG/ML) 10ML CUP PO ×4 (09:00→21:10)
[2018-03-05] MEDS: Insulin NOVOLOG SS MILD Algorithm (NPO/TPN/ENTERAL FEEDS) SC ×4 (09:00→21:00)
[2018-03-05] MEDS: METOPROLOL 25 MG TAB PO ×2 (09:00→21:10)
[2018-03-05] MEDS ORDERED: FENTAnyl 50 MCG/ML VIAL IV (15:00)
[2018-03-05] MEDS: PROPOFOL 20 ML ×3 (15:01→15:12)
[2018-03-05] MEDS: ACETAMINOPHEN 650MG/20.3ML CUP PO (17:26)
[2018-03-05] MEDS: EPOETIN 10000 UNITS/ML (NON ESRD/NON ONCOLOGY) SC (17:27)
[2018-03-06] MEDS: Insulin NOVOLOG SS MILD Algorithm (NPO/TPN/ENTERAL FEEDS) SC ×2 (01:00→05:00)
[2018-03-06] MEDS: ACCU-CHEK XX (02:00)
[2018-03-06 05:13] LABS: ADD MAN DIFF? NO; BASOPHIL # 0.1 10^3/ul (0.0-0.1); BASOPHILS % 0.4 % (0.0-2.0); EOSINOPHILS # 0.4 10^3/ul (0.0-0.5); HEMOGLOBIN 8.1 g/dl (14.0-18.0); LYMPHOCYTES % 6.6 % (15.0-51.0); MEAN CORPUSCULAR HEMOGLOBIN 32.3 pg (29.0-33.0); MEAN CORPUSCULAR HGB CONC 33.8 g/dl (32.0-37.0); MEAN CORPUSCULAR VOLUME 95.6 fl (82.0-101.0); MEAN PLATELET VOLUME 10.8 fl (7.4-10.4); MONOCYTE # 1.3 10^3/ul (0.3-0.9); MONOCYTES % 8.6 % (0.0-11.0); NEUTROPHIL # 11.7 10^3/ul (1.6-7.5); NEUTROPHILS % 79.8 % (39.0-77.0); PLATELET COUNT 483 10^3/UL (140-415); RED BLOOD COUNT 2.51 10^6/ul (4.70-6.10); RED CELL DISTRIBUTION WIDTH 13.2 % (11.5-14.5)
[2018-03-06 05:13] LABS: WHITE BLOOD COUNT 14.6 10^3/ul (4.8-10.8)
[2018-03-06 05:40] LABS: ANION GAP 15 (5-13); BLOOD UREA NITROGEN 79 mg/dl (7-20); CALCIUM 8.6 mg/dl (8.4-10.2); CARBON DIOXIDE 25 mmol/L (21-31); CHLORIDE 95 mmol/L (97-110); GLUCOSE 112 mg/dl (70-220); PHOSPHORUS 10.7 mg/dl (2.5-4.9); POTASSIUM 5.7 mmol/L (3.5-5.1); SODIUM 135 mmol/L (135-144)
[2018-03-06 05:46] LABS: Estimated GFR 7 mL/min (>60)
[2018-03-06 05:54] LABS: VANCOMYCIN,RANDOM 12.3 ug/ml
[2018-03-06] MEDS: PANTOPRAZOLE 40 MG INJ IV ×2 (05:59→17:29)
[2018-03-06] MEDS: INSULIN ASPART [NOVOLOG] 3 ML PEN SC ×4 (07:00→20:59)
[2018-03-06] MEDS: CALCIUM ACETATE 667 MG CAP GTB ×3 (08:36→17:29)
[2018-03-06] MEDS: SUCRALFATE (100 MG/ML) 10ML CUP PO ×4 (08:36→20:53)
[2018-03-06] MEDS: METOPROLOL 25 MG TAB PO ×3 (08:37→20:54)
[2018-03-06] MEDS: ASPIRIN 81 MG TAB PO (08:37)
[2018-03-06] MEDS: HEPARIN 1000 UNITS/ML 10 ML INJ CATHETER (12:28)
[2018-03-06] MEDS: VANCOMYCIN 1 GM 250 ML IVPB (20:54)
[2018-03-07] MEDS: ACCU-CHEK XX (02:00)
[2018-03-07] MEDS: PANTOPRAZOLE 40 MG INJ IV ×2 (06:06→17:33)
[2018-03-07 06:19] LABS: CREATINE KINASE 124 IU/L (23-200)
[2018-03-07] MEDS: INSULIN ASPART [NOVOLOG] 3 ML PEN SC ×4 (07:00→21:00)
[2018-03-07] MEDS: SUCRALFATE (100 MG/ML) 10ML CUP PO ×4 (08:37→21:12)
[2018-03-07] MEDS: METOPROLOL 25 MG TAB PO ×2 (08:38→21:13)
[2018-03-07] MEDS: CALCIUM ACETATE 667 MG CAP GTB ×3 (08:40→17:32)
[2018-03-07] MEDS: BISACODYL (EC) 5 MG TAB PO (10:32)
[2018-03-07 14:55] LABS: ALANINE AMINOTRANSFERASE 135 IU/L (13-69); ALBUMIN 2.9 g/dl (3.3-4.9); ALKALINE PHOSPHATASE 61 IU/L (42-121); ANION GAP 13 (5-13); ASPARTATE AMINO TRANSFERASE 50 IU/L (15-46); BILIRUBIN,INDIRECT 0.1 mg/dl (0-1.1); BILIRUBIN,TOTAL 0.1 mg/dl (0.2-1.3); BLOOD UREA NITROGEN 76 mg/dl (7-20); CALCIUM 8.6 mg/dl (8.4-10.2); CARBON DIOXIDE 25 mmol/L (21-31); CHLORIDE 95 mmol/L (97-110); GLUCOSE 122 mg/dl (70-220); POTASSIUM 5.4 mmol/L (3.5-5.1); SODIUM 133 mmol/L (135-144); TOTAL PROTEIN 5.8 g/dl (6.1-8.1)
[2018-03-07 15:01] LABS: Estimated GFR 9 mL/min (>60)
[2018-03-07 15:04] LABS: CREATININE 7.06 mg/dl (0.61-1.24)
[2018-03-07] MEDS: PEG/ELECTROLYTES 4L BTL PO (16:08)
[2018-03-07] MEDS ORDERED: MAGNESIUM CITRATE 300 ML BTL PO (17:30)
[2018-03-07] MEDS: POLYETHYLENE GLYCOL 3350 119 GM POWDER PO (17:34)
[2018-03-08] MEDS: ACCU-CHEK XX (01:10)
[2018-03-08] MEDS: PANTOPRAZOLE 40 MG INJ IV ×2 (05:28→17:45)
[2018-03-08] MEDS: POLYETHYLENE GLYCOL 3350 119 GM POWDER PO (05:29)
[2018-03-08 06:38] LABS: ADD MAN DIFF? NO
[2018-03-08 06:45] LABS: WHITE BLOOD COUNT 12.8 10^3/ul (4.8-10.8)
[2018-03-08 06:45] LABS: BASOPHIL # 0.1 10^3/ul (0.0-0.1); BASOPHILS % 0.7 % (0.0-2.0); EOSINOPHILS # 0.7 10^3/ul (0.0-0.5); EOSINOPHILS % 5.1 % (0.0-7.0); HEMATOCRIT 22.1 % (42.0-52.0); HEMOGLOBIN 7.4 g/dl (14.0-18.0); LYMPHOCYTES # 1.2 10^3/ul (0.8-2.9); LYMPHOCYTES % 9.1 % (15.0-51.0); MEAN CORPUSCULAR HEMOGLOBIN 32.2 pg (29.0-33.0); MEAN CORPUSCULAR HGB CONC 33.5 g/dl (32.0-37.0); MEAN CORPUSCULAR VOLUME 96.1 fl (82.0-101.0); MEAN PLATELET VOLUME 10.7 fl (7.4-10.4); MONOCYTE # 1.2 10^3/ul (0.3-0.9); MONOCYTES % 9.2 % (0.0-11.0); NEUTROPHIL # 9.5 10^3/ul (1.6-7.5); NEUTROPHILS % 74.6 % (39.0-77.0); PLATELET COUNT 473 10^3/UL (140-415); RED CELL DISTRIBUTION WIDTH 13.3 % (11.5-14.5)
[2018-03-08] MEDS ORDERED: PROPOFOL 200 MG INJ (07:00)
[2018-03-08] MEDS: INSULIN ASPART [NOVOLOG] 3 ML PEN SC ×4 (07:00→21:00)
[2018-03-08 07:07] LABS: ALANINE AMINOTRANSFERASE 121 IU/L (13-69); ALBUMIN 2.8 g/dl (3.3-4.9); ALBUMIN/GLOBULIN RATIO 0.93; ALKALINE PHOSPHATASE 58 IU/L (42-121); ANION GAP 17 (5-13); ASPARTATE AMINO TRANSFERASE 45 IU/L (15-46); BILIRUBIN,INDIRECT 0.2 mg/dl (0-1.1); BILIRUBIN,TOTAL 0.2 mg/dl (0.2-1.3); BLOOD UREA NITROGEN 91 mg/dl (7-20); CALCIUM 8.7 mg/dl (8.4-10.2); CARBON DIOXIDE 25 mmol/L (21-31); CHLORIDE 96 mmol/L (97-110); GLUCOSE 104 mg/dl (70-220); PHOSPHORUS 11.2 mg/dl (2.5-4.9); POTASSIUM 4.7 mmol/L (3.5-5.1); SODIUM 138 mmol/L (135-144); TOTAL PROTEIN 5.8 g/dl (6.1-8.1)
[2018-03-08 07:15] LABS: Estimated GFR 8 mL/min (>60)
[2018-03-08 07:16] LABS: CREATININE 7.59 mg/dl (0.61-1.24)
[2018-03-08] MEDS: BISACODYL (EC) 5 MG TAB PO (08:00)
[2018-03-08] MEDS: CALCIUM ACETATE 667 MG CAP GTB ×3 (08:00→17:45)
[2018-03-08] MEDS: METOPROLOL 25 MG TAB PO ×2 (09:00→21:00)
[2018-03-08] MEDS: SUCRALFATE (100 MG/ML) 10ML CUP PO ×4 (09:00→21:28)
[2018-03-08] MEDS: HEPARIN 1000 UNITS/ML 10 ML INJ CATHETER (10:12)
[2018-03-08] MEDS: PROPOFOL 20 ML (12:53)
[2018-03-08] MEDS: SOD CHLORIDE 0.9% 250 ML IV* (14:38)
[2018-03-08] MEDS: ACETAMINOPHEN 650MG/20.3ML CUP PO ×2 (15:02→21:29)
[2018-03-08] MEDS: EPOETIN 10000 UNITS/ML (NON ESRD/NON ONCOLOGY) SC (18:07)
[2018-03-09] MEDS: ACCU-CHEK XX ×2 (02:00→20:13)
[2018-03-09 02:16] LABS: IMMEDIATE SPIN CROSSMATCH 1 2
[2018-03-09] MEDS: PANTOPRAZOLE 40 MG INJ IV ×2 (05:08→17:47)
[2018-03-09] MEDS: INSULIN ASPART [NOVOLOG] 3 ML PEN SC ×4 (07:00→20:13)
[2018-03-09 07:17] LABS: ADD MAN DIFF? NO
[2018-03-09 07:23] LABS: WHITE BLOOD COUNT 13.3 10^3/ul (4.8-10.8)
[2018-03-09 07:23] LABS: BASOPHIL # 0.1 10^3/ul (0.0-0.1); BASOPHILS % 0.7 % (0.0-2.0); EOSINOPHILS # 0.8 10^3/ul (0.0-0.5); EOSINOPHILS % 5.8 % (0.0-7.0); HEMATOCRIT 28.5 % (42.0-52.0); HEMOGLOBIN 9.5 g/dl (14.0-18.0); LYMPHOCYTES # 1.2 10^3/ul (0.8-2.9); LYMPHOCYTES % 8.8 % (15.0-51.0); MEAN CORPUSCULAR HEMOGLOBIN 31.3 pg (29.0-33.0); MEAN CORPUSCULAR HGB CONC 33.3 g/dl (32.0-37.0); MEAN CORPUSCULAR VOLUME 93.8 fl (82.0-101.0); MEAN PLATELET VOLUME 10.1 fl (7.4-10.4); MONOCYTE # 1.2 10^3/ul (0.3-0.9); MONOCYTES % 8.8 % (0.0-11.0); NEUTROPHILS % 74.5 % (39.0-77.0); PLATELET COUNT 451 10^3/UL (140-415); RED BLOOD COUNT 3.04 10^6/ul (4.70-6.10); RED CELL DISTRIBUTION WIDTH 15.3 % (11.5-14.5)
[2018-03-09 07:53] LABS: ANION GAP 9 (5-13); BLOOD UREA NITROGEN 67 mg/dl (7-20); CALCIUM 8.8 mg/dl (8.4-10.2); CARBON DIOXIDE 29 mmol/L (21-31); CHLORIDE 99 mmol/L (97-110); CREATININE 5.98 mg/dl (0.61-1.24); Estimated GFR 11 mL/min (>60); GLUCOSE 108 mg/dl (70-220); POTASSIUM 4.3 mmol/L (3.5-5.1); SODIUM 137 mmol/L (135-144)
[2018-03-09] MEDS: SUCRALFATE (100 MG/ML) 10ML CUP PO ×4 (08:42→20:10)
[2018-03-09] MEDS: CALCIUM ACETATE 667 MG CAP GTB ×3 (08:42→17:47)
[2018-03-09] MEDS: METOPROLOL 25 MG TAB PO ×2 (08:44→20:10)
[2018-03-09] MEDS: ACETAMINOPHEN 650MG/20.3ML CUP PO ×2 (12:07→20:11)
[2018-03-09] MEDS: MEROPENEM 1 GM/50ML(PMX) 50 ML IVPB (20:09)
[2018-03-10 05:06] LABS: ADD MAN DIFF? NO
[2018-03-10 05:49] LABS: ALANINE AMINOTRANSFERASE 85 IU/L (13-69); ALBUMIN 2.3 g/dl (3.3-4.9); ALBUMIN/GLOBULIN RATIO 0.88; ALKALINE PHOSPHATASE 46 IU/L (42-121); ANION GAP 11 (5-13); ASPARTATE AMINO TRANSFERASE 31 IU/L (15-46); BILIRUBIN,INDIRECT 3.5 mg/dl (0-1.1); BILIRUBIN,TOTAL 3.5 mg/dl (0.2-1.3); BLOOD UREA NITROGEN 81 mg/dl (7-20); CALCIUM 8.3 mg/dl (8.4-10.2); CARBON DIOXIDE 25 mmol/L (21-31); CHLORIDE 102 mmol/L (97-110); CREATININE 5.94 mg/dl (0.61-1.24); Estimated GFR 11 mL/min (>60); GLUCOSE 104 mg/dl (70-220); POTASSIUM 4.6 mmol/L (3.5-5.1); SODIUM 138 mmol/L (135-144); TOTAL PROTEIN 4.9 g/dl (6.1-8.1)
[2018-03-10] MEDS: PANTOPRAZOLE 40 MG INJ IV ×2 (06:01→18:04)
[2018-03-10] MEDS: INSULIN ASPART [NOVOLOG] 3 ML PEN SC ×4 (07:00→20:53)
[2018-03-10 07:45] LABS: WHITE BLOOD COUNT 13.9 10^3/ul (4.8-10.8)
[2018-03-10 07:45] LABS: BASOPHIL # 0.1 10^3/ul (0.0-0.1); BASOPHILS % 0.7 % (0.0-2.0); EOSINOPHILS % 7.1 % (0.0-7.0); HEMATOCRIT 27.9 % (42.0-52.0); HEMOGLOBIN 9.3 g/dl (14.0-18.0); LYMPHOCYTES # 1.4 10^3/ul (0.8-2.9); MEAN CORPUSCULAR HGB CONC 33.3 g/dl (32.0-37.0); MEAN PLATELET VOLUME 10.4 fl (7.4-10.4); MONOCYTE # 1.1 10^3/ul (0.3-0.9); NEUTROPHIL # 10.1 10^3/ul (1.6-7.5); PLATELET COUNT 464 10^3/UL (140-415)
[2018-03-10] MEDS: METOPROLOL 25 MG TAB PO ×3 (09:00→20:50)
[2018-03-10] MEDS: CALCIUM ACETATE 667 MG CAP GTB ×3 (09:30→18:16)
[2018-03-10] MEDS: SUCRALFATE (100 MG/ML) 10ML CUP PO ×4 (09:30→20:49)
[2018-03-10] MEDS: SEVELAMER CARBONATE 800 MG TABLET PO ×2 (13:18→18:50)
[2018-03-10] MEDS: EPOETIN 10000 UNITS/ML (NON ESRD/NON ONCOLOGY) SC (18:06)
[2018-03-10] MEDS: MEROPENEM 1 GM/50ML(PMX) 50 ML IVPB (20:49)
[2018-03-10] MEDS: VANCOMYCIN 1 GM 250 ML IVPB (21:38)
[2018-03-11] MEDS: ACCU-CHEK XX (02:00)
[2018-03-11 05:12] LABS: ADD MAN DIFF? NO
[2018-03-11 05:16] LABS: WHITE BLOOD COUNT 12.6 10^3/ul (4.8-10.8)
[2018-03-11 05:16] LABS: BASOPHIL # 0.1 10^3/ul (0.0-0.1); EOSINOPHILS # 0.9 10^3/ul (0.0-0.5); EOSINOPHILS % 7.3 % (0.0-7.0); HEMATOCRIT 29.5 % (42.0-52.0); HEMOGLOBIN 9.9 g/dl (14.0-18.0); LYMPHOCYTES # 1.5 10^3/ul (0.8-2.9); LYMPHOCYTES % 12.3 % (15.0-51.0); MEAN CORPUSCULAR HEMOGLOBIN 31.4 pg (29.0-33.0); MEAN CORPUSCULAR HGB CONC 33.6 g/dl (32.0-37.0); MEAN CORPUSCULAR VOLUME 93.7 fl (82.0-101.0); MONOCYTE # 1.1 10^3/ul (0.3-0.9); MONOCYTES % 8.4 % (0.0-11.0); NEUTROPHIL # 8.7 10^3/ul (1.6-7.5); NEUTROPHILS % 69.2 % (39.0-77.0); PLATELET COUNT 458 10^3/UL (140-415); RED BLOOD COUNT 3.15 10^6/ul (4.70-6.10); RED CELL DISTRIBUTION WIDTH 14.3 % (11.5-14.5)
[2018-03-11 05:38] LABS: ANION GAP 13 (5-13); BLOOD UREA NITROGEN 54 mg/dl (7-20); CALCIUM 9.1 mg/dl (8.4-10.2); CARBON DIOXIDE 28 mmol/L (21-31); CHLORIDE 99 mmol/L (97-110); CREATININE 4.43 mg/dl (0.61-1.24); Estimated GFR 15 mL/min (>60); GLUCOSE 109 mg/dl (70-220); MAGNESIUM 2.2 mg/dl (1.7-2.5); PHOSPHORUS 5.9 mg/dl (2.5-4.9); SODIUM 140 mmol/L (135-144)
[2018-03-11] MEDS: PANTOPRAZOLE 40 MG INJ IV ×2 (06:19→17:25)
[2018-03-11] MEDS: INSULIN ASPART [NOVOLOG] 3 ML PEN SC ×4 (07:00→21:00)
[2018-03-11] MEDS: CALCIUM ACETATE 667 MG CAP GTB ×3 (09:00→17:25)
[2018-03-11] MEDS: METOPROLOL 25 MG TAB PO ×2 (09:00→21:16)
[2018-03-11] MEDS: SEVELAMER CARBONATE 800 MG TABLET PO (09:00)
[2018-03-11] MEDS: SUCRALFATE (100 MG/ML) 10ML CUP PO ×4 (09:00→21:15)
[2018-03-11] MEDS: LEVOFLOXACIN 250 MG TAB PO (15:20)
[2018-03-11] MEDS: ZYVOX 600 MG TAB PO ×2 (15:20→21:16)
[2018-03-11] MEDS: ALBUMIN HUMAN 25% 100 ML IV (17:00)
[2018-03-12] MEDS: ACCU-CHEK XX (02:00)
[2018-03-12] MEDS: INSULIN ASPART [NOVOLOG] 3 ML PEN SC ×4 (07:00→21:00)
[2018-03-12 07:40] LABS: ADD MAN DIFF? NO
[2018-03-12 07:42] LABS: WHITE BLOOD COUNT 14.2 10^3/ul (4.8-10.8)
[2018-03-12 07:42] LABS: BASOPHIL # 0.2 10^3/ul (0.0-0.1); BASOPHILS % 1.1 % (0.0-2.0); EOSINOPHILS # 1.2 10^3/ul (0.0-0.5); EOSINOPHILS % 8.4 % (0.0-7.0); HEMATOCRIT 30.7 % (42.0-52.0); HEMOGLOBIN 10.2 g/dl (14.0-18.0); LYMPHOCYTES # 1.9 10^3/ul (0.8-2.9); LYMPHOCYTES % 13.1 % (15.0-51.0); MEAN CORPUSCULAR HEMOGLOBIN 31.3 pg (29.0-33.0); MEAN CORPUSCULAR HGB CONC 33.2 g/dl (32.0-37.0); MEAN CORPUSCULAR VOLUME 94.2 fl (82.0-101.0); MEAN PLATELET VOLUME 9.9 fl (7.4-10.4); MONOCYTE # 1.2 10^3/ul (0.3-0.9); MONOCYTES % 8.7 % (0.0-11.0); NEUTROPHIL # 9.4 10^3/ul (1.6-7.5); NEUTROPHILS % 66.1 % (39.0-77.0); NUCLEATED RED BLOOD CELLS% 0.1 /100WBC (0.0-0.0); PLATELET COUNT 432 10^3/UL (140-415); RED BLOOD COUNT 3.26 10^6/ul (4.70-6.10); RED CELL DISTRIBUTION WIDTH 14.3 % (11.5-14.5)
[2018-03-12 08:09] LABS: ANION GAP 12 (5-13); BLOOD UREA NITROGEN 42 mg/dl (7-20); CALCIUM 9.6 mg/dl (8.4-10.2); CARBON DIOXIDE 30 mmol/L (21-31); CHLORIDE 96 mmol/L (97-110); CREATININE 3.43 mg/dl (0.61-1.24); Estimated GFR 21 mL/min (>60); GLUCOSE 107 mg/dl (70-220); PHOSPHORUS 4.8 mg/dl (2.5-4.9); POTASSIUM 4.3 mmol/L (3.5-5.1); SODIUM 138 mmol/L (135-144)
[2018-03-12] MEDS: SUCRALFATE (100 MG/ML) 10ML CUP PO ×4 (09:20→21:33)
[2018-03-12] MEDS: ZYVOX 600 MG TAB PO ×2 (09:20→21:33)
[2018-03-12] MEDS: PANTOPRAZOLE 40 MG INJ IV ×2 (09:20→18:07)
[2018-03-12] MEDS: CALCIUM ACETATE 667 MG CAP GTB ×3 (09:20→18:06)
[2018-03-12] MEDS: METOPROLOL 25 MG TAB PO ×2 (09:22→21:33)
[2018-03-12] MEDS: EPOETIN 10000 UNITS/ML (NON ESRD/NON ONCOLOGY) SC (18:08)
[2018-03-13] MEDS: ACCU-CHEK XX (02:00)
[2018-03-13] MEDS: PANTOPRAZOLE 40 MG INJ IV ×2 (06:41→18:11)
[2018-03-13] MEDS: LEVOFLOXACIN 250 MG TAB PO (06:41)
[2018-03-13] MEDS: INSULIN ASPART [NOVOLOG] 3 ML PEN SC ×4 (09:38→21:00)
[2018-03-13] MEDS: SUCRALFATE (100 MG/ML) 10ML CUP PO ×4 (09:49→21:13)
[2018-03-13] MEDS: CALCIUM ACETATE 667 MG CAP GTB ×3 (09:49→18:11)
[2018-03-13] MEDS: ZYVOX 600 MG TAB PO ×2 (09:50→21:13)
[2018-03-13] MEDS: METOPROLOL 25 MG TAB PO ×2 (09:50→21:13)
[2018-03-13] MEDS: ACETAMINOPHEN 650MG/20.3ML CUP PO (11:22)
[2018-03-13 12:27] LABS: ADD MAN DIFF? NO
[2018-03-13 12:29] LABS: WHITE BLOOD COUNT 14.1 10^3/ul (4.8-10.8)
[2018-03-13 12:29] LABS: HEMATOCRIT 31.5 % (42.0-52.0); HEMOGLOBIN 10.4 g/dl (14.0-18.0); MEAN CORPUSCULAR VOLUME 93.5 fl (82.0-101.0); RED BLOOD COUNT 3.37 10^6/ul (4.70-6.10)
[2018-03-13 12:30] LABS: BASOPHIL # 0.2 10^3/ul (0.0-0.1); BASOPHILS % 1.1 % (0.0-2.0); EOSINOPHILS # 1.1 10^3/ul (0.0-0.5); EOSINOPHILS % 7.9 % (0.0-7.0); LYMPHOCYTES # 1.6 10^3/ul (0.8-2.9); MEAN CORPUSCULAR HEMOGLOBIN 30.9 pg (29.0-33.0); MEAN PLATELET VOLUME 9.2 fl (7.4-10.4); MONOCYTE # 1.1 10^3/ul (0.3-0.9); MONOCYTES % 7.6 % (0.0-11.0); NEUTROPHIL # 9.9 10^3/ul (1.6-7.5); NEUTROPHILS % 70.6 % (39.0-77.0); NUCLEATED RED BLOOD CELLS% 0.3 /100WBC (0.0-0.0); PLATELET COUNT 405 10^3/UL (140-415); RED CELL DISTRIBUTION WIDTH 13.6 % (11.5-14.5)
[2018-03-13 13:01] LABS: ANION GAP 10 (5-13); BLOOD UREA NITROGEN 67 mg/dl (7-20); CALCIUM 9.6 mg/dl (8.4-10.2); CARBON DIOXIDE 27 mmol/L (21-31); CHLORIDE 100 mmol/L (97-110); CREATININE 3.32 mg/dl (0.61-1.24); Estimated GFR 22 mL/min (>60); GLUCOSE 148 mg/dl (70-220); PHOSPHORUS 5.2 mg/dl (2.5-4.9); POTASSIUM 3.7 mmol/L (3.5-5.1); SODIUM 137 mmol/L (135-144)
[2018-03-14] MEDS: ACCU-CHEK XX (02:00)
[2018-03-14] MEDS: PANTOPRAZOLE 40 MG INJ IV ×2 (05:25→17:30)
[2018-03-14 06:05] LABS: ADD MAN DIFF? NO
[2018-03-14 06:18] LABS: BASOPHIL # 0.2 10^3/ul (0.0-0.1); BASOPHILS % 1.4 % (0.0-2.0); EOSINOPHILS # 1.2 10^3/ul (0.0-0.5); EOSINOPHILS % 9.4 % (0.0-7.0); HEMATOCRIT 31.8 % (42.0-52.0); HEMOGLOBIN 10.3 g/dl (14.0-18.0); LYMPHOCYTES # 1.5 10^3/ul (0.8-2.9); LYMPHOCYTES % 11.6 % (15.0-51.0); MEAN CORPUSCULAR HEMOGLOBIN 30.5 pg (29.0-33.0); MEAN CORPUSCULAR HGB CONC 32.4 g/dl (32.0-37.0); MEAN CORPUSCULAR VOLUME 94.1 fl (82.0-101.0); MEAN PLATELET VOLUME 9.9 fl (7.4-10.4); MONOCYTES % 7.9 % (0.0-11.0); NEUTROPHIL # 8.8 10^3/ul (1.6-7.5); NEUTROPHILS % 67.4 % (39.0-77.0); NUCLEATED RED BLOOD CELLS% 0.2 /100WBC (0.0-0.0); PLATELET COUNT 418 10^3/UL (140-415); RED BLOOD COUNT 3.38 10^6/ul (4.70-6.10); RED CELL DISTRIBUTION WIDTH 13.8 % (11.5-14.5)
[2018-03-14 06:38] LABS: ANION GAP 13 (5-13); BLOOD UREA NITROGEN 69 mg/dl (7-20); CALCIUM 9.8 mg/dl (8.4-10.2); CARBON DIOXIDE 27 mmol/L (21-31); CHLORIDE 100 mmol/L (97-110); CREATININE 2.99 mg/dl (0.61-1.24); Estimated GFR 24 mL/min (>60); GLUCOSE 110 mg/dl (70-220); PHOSPHORUS 5.1 mg/dl (2.5-4.9); POTASSIUM 3.7 mmol/L (3.5-5.1); SODIUM 140 mmol/L (135-144)
[2018-03-14] MEDS: INSULIN ASPART [NOVOLOG] 3 ML PEN SC ×4 (07:00→21:00)
[2018-03-14] MEDS: SUCRALFATE (100 MG/ML) 10ML CUP PO ×4 (08:51→21:05)
[2018-03-14] MEDS: CALCIUM ACETATE 667 MG CAP GTB ×3 (08:52→17:30)
[2018-03-14] MEDS: ZYVOX 600 MG TAB PO ×2 (08:52→21:05)
[2018-03-14] MEDS: METOPROLOL 25 MG TAB PO ×2 (08:55→21:06)
[2018-03-14] MEDS: FLUCONAZOLE 100 MG TAB PO (15:33)
[2018-03-15] MEDS: ACCU-CHEK XX (01:28)
[2018-03-15 05:30] LABS: ADD MAN DIFF? NO
[2018-03-15 05:37] LABS: BASOPHIL # 0.2 10^3/ul (0.0-0.1); BASOPHILS % 1.6 % (0.0-2.0); EOSINOPHILS # 1.2 10^3/ul (0.0-0.5); EOSINOPHILS % 9.9 % (0.0-7.0); HEMATOCRIT 33.7 % (42.0-52.0); HEMOGLOBIN 10.9 g/dl (14.0-18.0); LYMPHOCYTES # 1.7 10^3/ul (0.8-2.9); LYMPHOCYTES % 14.1 % (15.0-51.0); MEAN CORPUSCULAR HEMOGLOBIN 30.6 pg (29.0-33.0); MEAN CORPUSCULAR HGB CONC 32.3 g/dl (32.0-37.0); MEAN CORPUSCULAR VOLUME 94.7 fl (82.0-101.0); MEAN PLATELET VOLUME 9.9 fl (7.4-10.4); MONOCYTE # 0.9 10^3/ul (0.3-0.9); MONOCYTES % 7.9 % (0.0-11.0); NEUTROPHIL # 7.5 10^3/ul (1.6-7.5); NUCLEATED RED BLOOD CELLS% 0.3 /100WBC (0.0-0.0); PLATELET COUNT 407 10^3/UL (140-415); RED BLOOD COUNT 3.56 10^6/ul (4.70-6.10); RED CELL DISTRIBUTION WIDTH 13.5 % (11.5-14.5)
[2018-03-15 05:37] LABS: WHITE BLOOD COUNT 11.7 10^3/ul (4.8-10.8)
[2018-03-15] MEDS: PANTOPRAZOLE 40 MG INJ IV ×2 (05:39→17:48)
[2018-03-15 06:13] LABS: ANION GAP 17 (5-13); BLOOD UREA NITROGEN 72 mg/dl (7-20); CALCIUM 9.8 mg/dl (8.4-10.2); CARBON DIOXIDE 28 mmol/L (21-31); CHLORIDE 99 mmol/L (97-110); CREATININE 2.43 mg/dl (0.61-1.24); Estimated GFR 31 mL/min (>60); GLUCOSE 107 mg/dl (70-220); MAGNESIUM 1.9 mg/dl (1.7-2.5); POTASSIUM 3.7 mmol/L (3.5-5.1); SODIUM 144 mmol/L (135-144)
[2018-03-15] MEDS: LEVOFLOXACIN 250 MG TAB PO (06:59)
[2018-03-15] MEDS: INSULIN ASPART [NOVOLOG] 3 ML PEN SC ×4 (08:03→21:00)
[2018-03-15] MEDS: METOPROLOL 25 MG TAB PO ×2 (08:28→21:18)
[2018-03-15] MEDS: FLUCONAZOLE 100 MG TAB PO (08:28)
[2018-03-15] MEDS: SUCRALFATE (100 MG/ML) 10ML CUP PO ×4 (08:29→21:17)
[2018-03-15] MEDS: CALCIUM ACETATE 667 MG CAP GTB ×3 (08:29→17:48)
[2018-03-15] MEDS: ZYVOX 600 MG TAB PO ×2 (08:29→21:17)
[2018-03-15] MEDS: EPOETIN 10000 UNITS/ML (NON ESRD/NON ONCOLOGY) SC (17:50)
[2018-03-16] MEDS: ACCU-CHEK XX (02:00)
[2018-03-16] MEDS: PANTOPRAZOLE 40 MG INJ IV ×2 (05:25→17:37)
[2018-03-16 06:13] LABS: ADD MAN DIFF? NO; BASOPHIL # 0.2 10^3/ul (0.0-0.1); BASOPHILS % 1.8 % (0.0-2.0); EOSINOPHILS % 9.2 % (0.0-7.0); HEMATOCRIT 32.9 % (42.0-52.0); HEMOGLOBIN 10.8 g/dl (14.0-18.0); LYMPHOCYTES # 1.6 10^3/ul (0.8-2.9); LYMPHOCYTES % 14.6 % (15.0-51.0); MEAN CORPUSCULAR HEMOGLOBIN 30.8 pg (29.0-33.0); MEAN CORPUSCULAR HGB CONC 32.8 g/dl (32.0-37.0); MEAN CORPUSCULAR VOLUME 93.7 fl (82.0-101.0); MEAN PLATELET VOLUME 9.7 fl (7.4-10.4); MONOCYTE # 0.9 10^3/ul (0.3-0.9); MONOCYTES % 7.8 % (0.0-11.0); NEUTROPHIL # 7.2 10^3/ul (1.6-7.5); NEUTROPHILS % 65.1 % (39.0-77.0); PLATELET COUNT 415 10^3/UL (140-415); RED BLOOD COUNT 3.51 10^6/ul (4.70-6.10); RED CELL DISTRIBUTION WIDTH 13.9 % (11.5-14.5)
[2018-03-16 06:21] LABS: PHOSPHORUS 4.6 mg/dl (2.5-4.9)
[2018-03-16 06:21] LABS: MAGNESIUM 1.8 mg/dl (1.7-2.5)
[2018-03-16 06:24] LABS: ALANINE AMINOTRANSFERASE 66 IU/L (13-69); ALBUMIN/GLOBULIN RATIO 0.97; ALKALINE PHOSPHATASE 94 IU/L (42-121); ANION GAP 16 (5-13); ASPARTATE AMINO TRANSFERASE 40 IU/L (15-46); BILIRUBIN,INDIRECT 0.3 mg/dl (0-1.1); BILIRUBIN,TOTAL 0.3 mg/dl (0.2-1.3); BLOOD UREA NITROGEN 63 mg/dl (7-20); CALCIUM 9.8 mg/dl (8.4-10.2); CARBON DIOXIDE 27 mmol/L (21-31); CHLORIDE 100 mmol/L (97-110); CREATININE 2.05 mg/dl (0.61-1.24); Estimated GFR 38 mL/min (>60); GLUCOSE 107 mg/dl (70-220); POTASSIUM 3.8 mmol/L (3.5-5.1); SODIUM 143 mmol/L (135-144); TOTAL PROTEIN 8.1 g/dl (6.1-8.1)
[2018-03-16] MEDS: INSULIN ASPART [NOVOLOG] 3 ML PEN SC ×4 (08:06→20:32)
[2018-03-16] MEDS: ZYVOX 600 MG TAB PO ×2 (08:33→20:27)
[2018-03-16] MEDS: SUCRALFATE (100 MG/ML) 10ML CUP PO ×4 (08:33→20:27)
[2018-03-16] MEDS: FLUCONAZOLE 100 MG TAB PO (08:33)
[2018-03-16] MEDS: METOPROLOL 25 MG TAB PO ×2 (08:34→20:27)
[2018-03-16] MEDS: SOD CHLORIDE 0.45% 1,000 ML IV ×2 (08:56→23:57)
[2018-03-16] MEDS: MAGNESIUM SULFATE 2 GM/50 ML 50 ML IVPB (10:02)
[2018-03-17] MEDS: ACCU-CHEK XX (02:00)
[2018-03-17 05:41] LABS: ADD MAN DIFF? NO
[2018-03-17 05:43] LABS: WHITE BLOOD COUNT 11.4 10^3/ul (4.8-10.8)
[2018-03-17 05:43] LABS: BASOPHIL # 0.2 10^3/ul (0.0-0.1); BASOPHILS % 1.6 % (0.0-2.0); EOSINOPHILS # 1.1 10^3/ul (0.0-0.5); EOSINOPHILS % 9.4 % (0.0-7.0); LYMPHOCYTES # 1.6 10^3/ul (0.8-2.9); LYMPHOCYTES % 13.9 % (15.0-51.0); MEAN CORPUSCULAR HEMOGLOBIN 30.9 pg (29.0-33.0); MEAN CORPUSCULAR HGB CONC 32.4 g/dl (32.0-37.0); MEAN CORPUSCULAR VOLUME 95.5 fl (82.0-101.0); MEAN PLATELET VOLUME 9.8 fl (7.4-10.4); MONOCYTE # 0.9 10^3/ul (0.3-0.9); MONOCYTES % 8.2 % (0.0-11.0); NEUTROPHIL # 7.5 10^3/ul (1.6-7.5); NEUTROPHILS % 65.9 % (39.0-77.0); NUCLEATED RED BLOOD CELLS% 0.3 /100WBC (0.0-0.0); PLATELET COUNT 436 10^3/UL (140-415); RED BLOOD COUNT 3.56 10^6/ul (4.70-6.10); RED CELL DISTRIBUTION WIDTH 13.9 % (11.5-14.5)
[2018-03-17] MEDS: LEVOFLOXACIN 250 MG TAB PO (05:51)
[2018-03-17] MEDS: PANTOPRAZOLE 40 MG INJ IV ×2 (05:51→17:48)
[2018-03-17 06:25] LABS: ANION GAP 15 (5-13); BLOOD UREA NITROGEN 56 mg/dl (7-20); CALCIUM 9.6 mg/dl (8.4-10.2); CARBON DIOXIDE 25 mmol/L (21-31); CHLORIDE 102 mmol/L (97-110); CREATININE 1.63 mg/dl (0.61-1.24); Estimated GFR 49 mL/min (>60); GLUCOSE 120 mg/dl (70-220); PHOSPHORUS 3.6 mg/dl (2.5-4.9); POTASSIUM 3.6 mmol/L (3.5-5.1); SODIUM 142 mmol/L (135-144)
[2018-03-17] MEDS: INSULIN ASPART [NOVOLOG] 3 ML PEN SC ×4 (07:00→21:00)
[2018-03-17] MEDS ORDERED: POTASSIUM CHLORIDE (SR) 10 MEQ TAB PO (09:30)
[2018-03-17] MEDS: SUCRALFATE (100 MG/ML) 10ML CUP PO ×4 (09:34→21:37)
[2018-03-17] MEDS: FLUCONAZOLE 100 MG TAB PO (09:34)
[2018-03-17] MEDS: METOPROLOL 25 MG TAB PO ×2 (09:35→21:37)
[2018-03-17] MEDS: ZYVOX 600 MG TAB PO (09:35)
[2018-03-17] MEDS: POTASSIUM CHLORIDE 20 MEQ POWDER FOR ORAL SOLN PO (12:04)
[2018-03-17] MEDS: SOD CHLORIDE 0.45% 1,000 ML IV ×2 (13:56→21:44)
[2018-03-17] MEDS: EPOETIN 10000 UNITS/ML (NON ESRD/NON ONCOLOGY) SC (17:00)
[2018-03-18] MEDS: ACCU-CHEK XX (02:00)
[2018-03-18] MEDS: PANTOPRAZOLE 40 MG INJ IV ×2 (05:13→17:38)
[2018-03-18] MEDS: SOD CHLORIDE 0.45% 1,000 ML IV ×2 (05:42→10:26)
[2018-03-18 05:56] LABS: ADD MAN DIFF? NO
[2018-03-18 06:00] LABS: WHITE BLOOD COUNT 9.2 10^3/ul (4.8-10.8)
[2018-03-18 06:00] LABS: BASOPHIL # 0.2 10^3/ul (0.0-0.1); BASOPHILS % 1.6 % (0.0-2.0); EOSINOPHILS # 0.9 10^3/ul (0.0-0.5); EOSINOPHILS % 9.7 % (0.0-7.0); HEMATOCRIT 33.3 % (42.0-52.0); HEMOGLOBIN 10.8 g/dl (14.0-18.0); LYMPHOCYTES # 1.6 10^3/ul (0.8-2.9); LYMPHOCYTES % 17.5 % (15.0-51.0); MEAN CORPUSCULAR HGB CONC 32.4 g/dl (32.0-37.0); MEAN CORPUSCULAR VOLUME 95.7 fl (82.0-101.0); MEAN PLATELET VOLUME 9.4 fl (7.4-10.4); MONOCYTE # 0.8 10^3/ul (0.3-0.9); MONOCYTES % 8.3 % (0.0-11.0); NEUTROPHIL # 5.7 10^3/ul (1.6-7.5); NEUTROPHILS % 62.1 % (39.0-77.0); PLATELET COUNT 377 10^3/UL (140-415); RED BLOOD COUNT 3.48 10^6/ul (4.70-6.10); RED CELL DISTRIBUTION WIDTH 14.1 % (11.5-14.5)
[2018-03-18 06:23] LABS: ANION GAP 17 (5-13); BLOOD UREA NITROGEN 47 mg/dl (7-20); CALCIUM 9.5 mg/dl (8.4-10.2); CARBON DIOXIDE 23 mmol/L (21-31); CHLORIDE 102 mmol/L (97-110); CREATININE 1.45 mg/dl (0.61-1.24); Estimated GFR 56 mL/min (>60); GLUCOSE 104 mg/dl (70-220); MAGNESIUM 1.6 mg/dl (1.7-2.5); PHOSPHORUS 3.9 mg/dl (2.5-4.9); POTASSIUM 3.9 mmol/L (3.5-5.1); SODIUM 142 mmol/L (135-144)
[2018-03-18] MEDS: INSULIN ASPART [NOVOLOG] 3 ML PEN SC ×4 (08:25→20:42)
[2018-03-18] MEDS: SUCRALFATE (100 MG/ML) 10ML CUP PO ×4 (10:19→20:41)
[2018-03-18] MEDS: METOPROLOL 25 MG TAB PO ×2 (10:19→20:42)
[2018-03-18] MEDS: MAGNESIUM SULFATE 3 GM in DEXTROSE 5% 100 ML IVPB (11:37)
[2018-03-19] MEDS: ACCU-CHEK XX (02:00)
[2018-03-19] MEDS: SOD CHLORIDE 0.45% 1,000 ML IV ×2 (03:18→17:30)
[2018-03-19 05:26] LABS: ADD MAN DIFF? NO
[2018-03-19 05:28] LABS: BASOPHIL # 0.2 10^3/ul (0.0-0.1); BASOPHILS % 2.1 % (0.0-2.0); EOSINOPHILS # 0.9 10^3/ul (0.0-0.5); EOSINOPHILS % 9.6 % (0.0-7.0); HEMATOCRIT 33.7 % (42.0-52.0); HEMOGLOBIN 11.1 g/dl (14.0-18.0); LYMPHOCYTES # 1.6 10^3/ul (0.8-2.9); LYMPHOCYTES % 17.2 % (15.0-51.0); MEAN CORPUSCULAR HEMOGLOBIN 31.3 pg (29.0-33.0); MEAN CORPUSCULAR HGB CONC 32.9 g/dl (32.0-37.0); MEAN CORPUSCULAR VOLUME 94.9 fl (82.0-101.0); MEAN PLATELET VOLUME 9.6 fl (7.4-10.4); MONOCYTE # 0.8 10^3/ul (0.3-0.9); MONOCYTES % 8.9 % (0.0-11.0); NEUTROPHIL # 5.7 10^3/ul (1.6-7.5); NEUTROPHILS % 61.7 % (39.0-77.0); NUCLEATED RED BLOOD CELLS% 0.2 /100WBC (0.0-0.0); PLATELET COUNT 388 10^3/UL (140-415); RED BLOOD COUNT 3.55 10^6/ul (4.70-6.10); RED CELL DISTRIBUTION WIDTH 14.5 % (11.5-14.5)
[2018-03-19 05:28] LABS: WHITE BLOOD COUNT 9.2 10^3/ul (4.8-10.8)
[2018-03-19] MEDS: PANTOPRAZOLE 40 MG INJ IV ×2 (05:28→18:25)
[2018-03-19 05:54] LABS: ANION GAP 14 (5-13); BLOOD UREA NITROGEN 38 mg/dl (7-20); CALCIUM 9.6 mg/dl (8.4-10.2); CARBON DIOXIDE 25 mmol/L (21-31); CHLORIDE 103 mmol/L (97-110); CREATININE 1.22 mg/dl (0.61-1.24); Estimated GFR > 60 mL/min (>60); GLUCOSE 101 mg/dl (70-220); MAGNESIUM 1.9 mg/dl (1.7-2.5); POTASSIUM 3.9 mmol/L (3.5-5.1); SODIUM 142 mmol/L (135-144)
[2018-03-19] MEDS: INSULIN ASPART [NOVOLOG] 3 ML PEN SC ×4 (08:09→21:00)
[2018-03-19] MEDS: METOPROLOL 25 MG TAB PO ×2 (08:27→21:11)
[2018-03-19] MEDS: SUCRALFATE (100 MG/ML) 10ML CUP PO ×4 (08:27→21:11)
[2018-03-20] MEDS: ACCU-CHEK XX ×2 (01:27→20:18)
[2018-03-20] MEDS: PANTOPRAZOLE 40 MG INJ IV ×2 (05:57→17:45)
[2018-03-20] MEDS: INSULIN ASPART [NOVOLOG] 3 ML PEN SC ×4 (08:00→20:18)
[2018-03-20] MEDS: SUCRALFATE (100 MG/ML) 10ML CUP PO ×4 (09:50→20:12)
[2018-03-20] MEDS: METOPROLOL 25 MG TAB PO ×2 (09:51→20:14)
[2018-03-20] MEDS: SOD CHLORIDE 0.45% 1,000 ML IV ×2 (17:56→20:03)
[2018-03-21] MEDS: PANTOPRAZOLE 40 MG INJ IV (05:07)
[2018-03-21 05:21] LABS: ADD MAN DIFF? NO
[2018-03-21 05:23] LABS: BASOPHIL # 0.2 10^3/ul (0.0-0.1); BASOPHILS % 1.7 % (0.0-2.0); EOSINOPHILS # 0.8 10^3/ul (0.0-0.5); EOSINOPHILS % 6.3 % (0.0-7.0); HEMATOCRIT 35.4 % (42.0-52.0); HEMOGLOBIN 11.6 g/dl (14.0-18.0); LYMPHOCYTES % 16.5 % (15.0-51.0); MEAN CORPUSCULAR HEMOGLOBIN 30.9 pg (29.0-33.0); MEAN CORPUSCULAR HGB CONC 32.8 g/dl (32.0-37.0); MEAN CORPUSCULAR VOLUME 94.4 fl (82.0-101.0); MEAN PLATELET VOLUME 9.6 fl (7.4-10.4); MONOCYTE # 1.1 10^3/ul (0.3-0.9); MONOCYTES % 9.2 % (0.0-11.0); NEUTROPHIL # 7.8 10^3/ul (1.6-7.5); NEUTROPHILS % 65.1 % (39.0-77.0); NUCLEATED RED BLOOD CELLS% 0.2 /100WBC (0.0-0.0); PLATELET COUNT 401 10^3/UL (140-415); RED BLOOD COUNT 3.75 10^6/ul (4.70-6.10); RED CELL DISTRIBUTION WIDTH 14.7 % (11.5-14.5)
[2018-03-21 05:55] LABS: ANION GAP 16 (5-13); BLOOD UREA NITROGEN 33 mg/dl (7-20); CALCIUM 9.8 mg/dl (8.4-10.2); CARBON DIOXIDE 25 mmol/L (21-31); CHLORIDE 104 mmol/L (97-110); Estimated GFR > 60 mL/min (>60); GLUCOSE 106 mg/dl (70-220); MAGNESIUM 1.6 mg/dl (1.7-2.5); PHOSPHORUS 3.8 mg/dl (2.5-4.9); POTASSIUM 3.6 mmol/L (3.5-5.1); SODIUM 145 mmol/L (135-144)
[2018-03-21] MEDS: INSULIN ASPART [NOVOLOG] 3 ML PEN SC ×4 (07:00→20:38)
[2018-03-21] MEDS: SUCRALFATE (100 MG/ML) 10ML CUP PO ×4 (09:30→20:41)
[2018-03-21] MEDS: METOPROLOL 25 MG TAB PO ×2 (09:31→20:39)
[2018-03-21] MEDS: MAGNESIUM SULFATE 2 GM/50 ML 50 ML IVPB (10:57)
[2018-03-21] MEDS: SOD CHLORIDE 0.45% 1,000 ML IV (17:21)
[2018-03-22] MEDS: ACCU-CHEK XX (01:32)
[2018-03-22] MEDS: PANTOPRAZOLE (EC) 40 MG TAB PO (05:47)
[2018-03-22] MEDS: SUCRALFATE (100 MG/ML) 10ML CUP PO ×4 (08:50→20:43)
[2018-03-22] MEDS: INSULIN ASPART [NOVOLOG] 3 ML PEN SC ×4 (08:50→20:51)
[2018-03-22] MEDS: METOPROLOL 25 MG TAB PO ×2 (08:51→20:43)
[2018-03-22] MEDS: SOD CHLORIDE 0.45% 1,000 ML IV (13:00)
[2018-03-23] MEDS: ACCU-CHEK XX (01:07)
[2018-03-23] MEDS: PANTOPRAZOLE (EC) 40 MG TAB PO (05:42)
[2018-03-23 05:52] LABS: ADD MAN DIFF? NO
[2018-03-23 05:59] LABS: WHITE BLOOD COUNT 10.3 10^3/ul (4.8-10.8)
[2018-03-23 05:59] LABS: BASOPHIL # 0.2 10^3/ul (0.0-0.1); BASOPHILS % 1.8 % (0.0-2.0); EOSINOPHILS # 0.7 10^3/ul (0.0-0.5); EOSINOPHILS % 7.1 % (0.0-7.0); HEMATOCRIT 37.5 % (42.0-52.0); HEMOGLOBIN 12.3 g/dl (14.0-18.0); LYMPHOCYTES # 2.1 10^3/ul (0.8-2.9); LYMPHOCYTES % 20.4 % (15.0-51.0); MEAN CORPUSCULAR HEMOGLOBIN 30.9 pg (29.0-33.0); MEAN CORPUSCULAR HGB CONC 32.8 g/dl (32.0-37.0); MEAN CORPUSCULAR VOLUME 94.2 fl (82.0-101.0); MEAN PLATELET VOLUME 9.3 fl (7.4-10.4); MONOCYTE # 0.8 10^3/ul (0.3-0.9); MONOCYTES % 7.8 % (0.0-11.0); NEUTROPHIL # 6.3 10^3/ul (1.6-7.5); NEUTROPHILS % 61.3 % (39.0-77.0); PLATELET COUNT 398 10^3/UL (140-415); RED BLOOD COUNT 3.98 10^6/ul (4.70-6.10)
[2018-03-23 06:30] LABS: ANION GAP 14 (5-13); BLOOD UREA NITROGEN 23 mg/dl (7-20); CALCIUM 9.9 mg/dl (8.4-10.2); CARBON DIOXIDE 26 mmol/L (21-31); CHLORIDE 104 mmol/L (97-110); CREATININE 0.87 mg/dl (0.61-1.24); Estimated GFR > 60 mL/min (>60); GLUCOSE 110 mg/dl (70-220); MAGNESIUM 1.5 mg/dl (1.7-2.5); PHOSPHORUS 4.2 mg/dl (2.5-4.9); POTASSIUM 3.6 mmol/L (3.5-5.1); SODIUM 144 mmol/L (135-144)
[2018-03-23] MEDS: INSULIN ASPART [NOVOLOG] 3 ML PEN SC ×4 (08:05→21:00)
[2018-03-23] MEDS: SOD CHLORIDE 0.45% 1,000 ML IV (08:55)
[2018-03-23] MEDS: METOPROLOL 25 MG TAB PO ×2 (08:56→21:03)
[2018-03-23] MEDS: SUCRALFATE (100 MG/ML) 10ML CUP PO ×4 (08:56→22:12)
[2018-03-23] MEDS: MAGNESIUM SULFATE 2 GM/50 ML 50 ML IVPB (15:25)
[2018-03-24] MEDS: ACCU-CHEK XX (02:00)
[2018-03-24] MEDS: PANTOPRAZOLE (EC) 40 MG TAB PO (05:46)
[2018-03-24] MEDS: SOD CHLORIDE 0.45% 1,000 ML IV (05:46)
[2018-03-24] MEDS: INSULIN ASPART [NOVOLOG] 3 ML PEN SC ×4 (07:00→20:27)
[2018-03-24] MEDS: SUCRALFATE (100 MG/ML) 10ML CUP PO ×4 (09:19→20:22)
[2018-03-24] MEDS: METOPROLOL 25 MG TAB PO ×2 (09:19→20:22)
[2018-03-25] MEDS: SOD CHLORIDE 0.45% 1,000 ML IV ×2 (01:02→21:01)
[2018-03-25] MEDS: ACCU-CHEK XX (02:00)
[2018-03-25 05:10] LABS: ADD MAN DIFF? NO
[2018-03-25 05:14] LABS: BASOPHIL # 0.1 10^3/ul (0.0-0.1); BASOPHILS % 1.6 % (0.0-2.0); EOSINOPHILS # 0.5 10^3/ul (0.0-0.5); EOSINOPHILS % 6.8 % (0.0-7.0); HEMATOCRIT 40.5 % (42.0-52.0); HEMOGLOBIN 13.2 g/dl (14.0-18.0); LYMPHOCYTES # 1.7 10^3/ul (0.8-2.9); LYMPHOCYTES % 24.3 % (15.0-51.0); MEAN CORPUSCULAR HEMOGLOBIN 30.8 pg (29.0-33.0); MEAN CORPUSCULAR HGB CONC 32.6 g/dl (32.0-37.0); MEAN CORPUSCULAR VOLUME 94.6 fl (82.0-101.0); MEAN PLATELET VOLUME 9.6 fl (7.4-10.4); MONOCYTE # 0.5 10^3/ul (0.3-0.9); MONOCYTES % 7.3 % (0.0-11.0); NEUTROPHIL # 4.1 10^3/ul (1.6-7.5); NEUTROPHILS % 59.3 % (39.0-77.0); PLATELET COUNT 396 10^3/UL (140-415); RED BLOOD COUNT 4.28 10^6/ul (4.70-6.10); RED CELL DISTRIBUTION WIDTH 14.5 % (11.5-14.5)
[2018-03-25 05:56] LABS: ANION GAP 12 (5-13); BLOOD UREA NITROGEN 21 mg/dl (7-20); CALCIUM 9.9 mg/dl (8.4-10.2); CARBON DIOXIDE 27 mmol/L (21-31); CHLORIDE 101 mmol/L (97-110); CREATININE 0.87 mg/dl (0.61-1.24); Estimated GFR > 60 mL/min (>60); GLUCOSE 99 mg/dl (70-220); MAGNESIUM 1.5 mg/dl (1.7-2.5); PHOSPHORUS 3.9 mg/dl (2.5-4.9); POTASSIUM 3.4 mmol/L (3.5-5.1); SODIUM 140 mmol/L (135-144)
[2018-03-25] MEDS: PANTOPRAZOLE (EC) 40 MG TAB PO (06:05)
[2018-03-25] MEDS: INSULIN ASPART [NOVOLOG] 3 ML PEN SC ×4 (07:00→21:00)
[2018-03-25] MEDS: METOPROLOL 25 MG TAB PO ×2 (08:21→20:57)
[2018-03-25] MEDS: SUCRALFATE (100 MG/ML) 10ML CUP PO ×4 (08:21→20:57)
[2018-03-25] MEDS: POTASSIUM CHLORIDE (SR) 20 MEQ TAB PO (14:15)
[2018-03-25] MEDS: MAGNESIUM SULFATE 2 GM/50 ML 50 ML IVPB (14:39)
[2018-03-26] MEDS: ACCU-CHEK XX (01:39)
[2018-03-26] MEDS: PANTOPRAZOLE (EC) 40 MG TAB PO (05:40)
[2018-03-26] MEDS: INSULIN ASPART [NOVOLOG] 3 ML PEN SC ×4 (07:00→21:00)
[2018-03-26] MEDS: METOPROLOL 25 MG TAB PO ×2 (08:59→21:41)
[2018-03-26] MEDS: SUCRALFATE (100 MG/ML) 10ML CUP PO ×4 (09:00→21:41)
[2018-03-26] MEDS: traMADol 50 MG TAB PO (16:02)
[2018-03-26] MEDS: SOD CHLORIDE 0.45% 1,000 ML IV ×2 (16:03→18:00)
[2018-03-27] MEDS: ACCU-CHEK XX (02:00)
[2018-03-27] MEDS: PANTOPRAZOLE (EC) 40 MG TAB PO (06:09)
[2018-03-27] MEDS: INSULIN ASPART [NOVOLOG] 3 ML PEN SC ×4 (07:00→20:36)
[2018-03-27 07:01] LABS: ADD MAN DIFF? NO
[2018-03-27 07:13] LABS: BASOPHIL # 0.2 10^3/ul (0.0-0.1); BASOPHILS % 2.3 % (0.0-2.0); EOSINOPHILS # 0.5 10^3/ul (0.0-0.5); EOSINOPHILS % 8.3 % (0.0-7.0); HEMATOCRIT 40.1 % (42.0-52.0); HEMOGLOBIN 13.1 g/dl (14.0-18.0); LYMPHOCYTES # 1.7 10^3/ul (0.8-2.9); LYMPHOCYTES % 26.6 % (15.0-51.0); MEAN CORPUSCULAR HEMOGLOBIN 30.8 pg (29.0-33.0); MEAN CORPUSCULAR HGB CONC 32.7 g/dl (32.0-37.0); MEAN CORPUSCULAR VOLUME 94.1 fl (82.0-101.0); MEAN PLATELET VOLUME 9.9 fl (7.4-10.4); MONOCYTE # 0.5 10^3/ul (0.3-0.9); NEUTROPHIL # 3.6 10^3/ul (1.6-7.5); NEUTROPHILS % 54.3 % (39.0-77.0); PLATELET COUNT 334 10^3/UL (140-415); RED BLOOD COUNT 4.26 10^6/ul (4.70-6.10); RED CELL DISTRIBUTION WIDTH 14.4 % (11.5-14.5)
[2018-03-27 07:13] LABS: WHITE BLOOD COUNT 6.5 10^3/ul (4.8-10.8)
[2018-03-27 07:33] LABS: ANION GAP 11 (5-13); BLOOD UREA NITROGEN 26 mg/dl (7-20); CALCIUM 9.9 mg/dl (8.4-10.2); CARBON DIOXIDE 27 mmol/L (21-31); CHLORIDE 102 mmol/L (97-110); CREATININE 0.82 mg/dl (0.61-1.24); Estimated GFR > 60 mL/min (>60); GLUCOSE 106 mg/dl (70-220); MAGNESIUM 1.5 mg/dl (1.7-2.5); PHOSPHORUS 4.4 mg/dl (2.5-4.9); POTASSIUM 3.6 mmol/L (3.5-5.1); SODIUM 140 mmol/L (135-144)
[2018-03-27] MEDS: METOPROLOL 25 MG TAB PO ×2 (08:17→20:37)
[2018-03-27] MEDS: SUCRALFATE (100 MG/ML) 10ML CUP PO ×4 (08:18→20:37)
[2018-03-27] MEDS: SOD CHLORIDE 0.45% 1,000 ML IV (14:14)
[2018-03-27] MEDS: MAGNESIUM SULFATE 2 GM/50 ML 50 ML IVPB (16:22)
[2018-03-28] MEDS: ACCU-CHEK XX (02:00)
[2018-03-28] MEDS: PANTOPRAZOLE (EC) 40 MG TAB PO (06:30)
[2018-03-28] MEDS: INSULIN ASPART [NOVOLOG] 3 ML PEN SC ×4 (07:00→21:00)
[2018-03-28] MEDS: SOD CHLORIDE 0.45% 1,000 ML IV ×2 (07:57→12:44)
[2018-03-28] MEDS: SUCRALFATE (100 MG/ML) 10ML CUP PO ×4 (08:00→21:25)
[2018-03-28] MEDS: METOPROLOL 25 MG TAB PO ×2 (08:15→21:25)
[2018-03-29] MEDS: ACCU-CHEK XX (02:00)
[2018-03-29] MEDS: SOD CHLORIDE 0.45% 1,000 ML IV ×2 (04:03→10:53)
[2018-03-29 05:41] LABS: ADD MAN DIFF? NO
[2018-03-29 06:00] LABS: WHITE BLOOD COUNT 6.6 10^3/ul (4.8-10.8)
[2018-03-29 06:00] LABS: BASOPHIL # 0.1 10^3/ul (0.0-0.1); BASOPHILS % 1.4 % (0.0-2.0); EOSINOPHILS # 0.5 10^3/ul (0.0-0.5); EOSINOPHILS % 7.1 % (0.0-7.0); HEMATOCRIT 39.7 % (42.0-52.0); HEMOGLOBIN 12.9 g/dl (14.0-18.0); LYMPHOCYTES # 2.2 10^3/ul (0.8-2.9); LYMPHOCYTES % 32.4 % (15.0-51.0); MEAN CORPUSCULAR HEMOGLOBIN 30.4 pg (29.0-33.0); MEAN CORPUSCULAR HGB CONC 32.5 g/dl (32.0-37.0); MEAN CORPUSCULAR VOLUME 93.6 fl (82.0-101.0); MEAN PLATELET VOLUME 10.3 fl (7.4-10.4); MONOCYTE # 0.5 10^3/ul (0.3-0.9); MONOCYTES % 7.8 % (0.0-11.0); NEUTROPHIL # 3.4 10^3/ul (1.6-7.5); PLATELET COUNT 331 10^3/UL (140-415); RED BLOOD COUNT 4.24 10^6/ul (4.70-6.10); RED CELL DISTRIBUTION WIDTH 13.9 % (11.5-14.5)
[2018-03-29 06:04] LABS: ANION GAP 12 (5-13); BLOOD UREA NITROGEN 22 mg/dl (7-20); CARBON DIOXIDE 27 mmol/L (21-31); CHLORIDE 100 mmol/L (97-110); Estimated GFR > 60 mL/min (>60); GLUCOSE 103 mg/dl (70-220); MAGNESIUM 1.5 mg/dl (1.7-2.5); PHOSPHORUS 4.2 mg/dl (2.5-4.9); POTASSIUM 3.5 mmol/L (3.5-5.1); SODIUM 139 mmol/L (135-144)
[2018-03-29] MEDS: PANTOPRAZOLE (EC) 40 MG TAB PO (06:09)
[2018-03-29] MEDS: INSULIN ASPART [NOVOLOG] 3 ML PEN SC ×4 (07:00→21:00)
[2018-03-29] MEDS: SUCRALFATE (100 MG/ML) 10ML CUP PO ×4 (08:33→21:01)
[2018-03-29] MEDS: METOPROLOL 25 MG TAB PO ×2 (08:34→21:01)
[2018-03-30] MEDS: SOD CHLORIDE 0.45% 1,000 ML IV ×3 (00:03→19:43)
[2018-03-30] MEDS: ACCU-CHEK XX (02:00)
[2018-03-30] MEDS: PANTOPRAZOLE (EC) 40 MG TAB PO (05:52)
[2018-03-30] MEDS: INSULIN ASPART [NOVOLOG] 3 ML PEN SC ×4 (07:00→20:57)
[2018-03-30] MEDS: SUCRALFATE (100 MG/ML) 10ML CUP PO ×4 (09:38→20:55)
[2018-03-30] MEDS: METOPROLOL 25 MG TAB PO ×2 (09:38→20:56)
[2018-03-30] MEDS: traMADol 50 MG TAB PO (12:02)
[2018-03-31] MEDS: ACCU-CHEK XX (01:32)
[2018-03-31] MEDS: SOD CHLORIDE 0.45% 1,000 ML IV ×2 (03:25→16:03)
[2018-03-31 05:18] LABS: ADD MAN DIFF? NO
[2018-03-31 05:23] LABS: BASOPHIL # 0.1 10^3/ul (0.0-0.1); BASOPHILS % 1.6 % (0.0-2.0); EOSINOPHILS # 0.5 10^3/ul (0.0-0.5); EOSINOPHILS % 7.7 % (0.0-7.0); HEMATOCRIT 39.1 % (42.0-52.0); HEMOGLOBIN 12.8 g/dl (14.0-18.0); LYMPHOCYTES # 2.1 10^3/ul (0.8-2.9); LYMPHOCYTES % 31.2 % (15.0-51.0); MEAN CORPUSCULAR HEMOGLOBIN 30.4 pg (29.0-33.0); MEAN CORPUSCULAR HGB CONC 32.7 g/dl (32.0-37.0); MEAN CORPUSCULAR VOLUME 92.9 fl (82.0-101.0); MEAN PLATELET VOLUME 10.4 fl (7.4-10.4); MONOCYTE # 0.5 10^3/ul (0.3-0.9); MONOCYTES % 7.3 % (0.0-11.0); NEUTROPHIL # 3.6 10^3/ul (1.6-7.5); NEUTROPHILS % 52.1 % (39.0-77.0); PLATELET COUNT 286 10^3/UL (140-415); RED BLOOD COUNT 4.21 10^6/ul (4.70-6.10); RED CELL DISTRIBUTION WIDTH 13.6 % (11.5-14.5)
[2018-03-31 05:23] LABS: WHITE BLOOD COUNT 6.9 10^3/ul (4.8-10.8)
[2018-03-31] MEDS: PANTOPRAZOLE (EC) 40 MG TAB PO (05:46)
[2018-03-31 06:06] LABS: ANION GAP 14 (5-13); BLOOD UREA NITROGEN 21 mg/dl (7-20); CALCIUM 9.9 mg/dl (8.4-10.2); CARBON DIOXIDE 28 mmol/L (21-31); CHLORIDE 100 mmol/L (97-110); CREATININE 0.74 mg/dl (0.61-1.24); Estimated GFR > 60 mL/min (>60); GLUCOSE 104 mg/dl (70-220); MAGNESIUM 1.5 mg/dl (1.7-2.5); PHOSPHORUS 4.1 mg/dl (2.5-4.9); POTASSIUM 3.6 mmol/L (3.5-5.1); SODIUM 142 mmol/L (135-144)
[2018-03-31] MEDS: INSULIN ASPART [NOVOLOG] 3 ML PEN SC ×4 (07:00→20:56)
[2018-03-31] MEDS: METOPROLOL 25 MG TAB PO ×2 (08:24→20:56)
[2018-03-31] MEDS: SUCRALFATE (100 MG/ML) 10ML CUP PO ×4 (08:24→20:56)
[2018-03-31] MEDS: LISINOPRIL 5 MG TAB PO (18:16)
[2018-04-01] MEDS: SOD CHLORIDE 0.45% 1,000 ML IV ×3 (00:49→22:59)
[2018-04-01] MEDS: ACCU-CHEK XX (01:13)
[2018-04-01] MEDS: PANTOPRAZOLE (EC) 40 MG TAB PO (05:58)
[2018-04-01] MEDS: INSULIN ASPART [NOVOLOG] 3 ML PEN SC ×4 (07:00→21:10)
[2018-04-01] MEDS: traMADol 50 MG TAB PO (07:36)
[2018-04-01] MEDS: LISINOPRIL 5 MG TAB PO (08:17)
[2018-04-01] MEDS: METOPROLOL 25 MG TAB PO ×2 (08:18→21:04)
[2018-04-01] MEDS: SUCRALFATE (100 MG/ML) 10ML CUP PO ×4 (08:18→21:04)
[2018-04-02] MEDS: ACCU-CHEK XX (02:00)
[2018-04-02] MEDS: PANTOPRAZOLE (EC) 40 MG TAB PO (05:35)
[2018-04-02] MEDS: INSULIN ASPART [NOVOLOG] 3 ML PEN SC ×4 (07:00→20:47)
[2018-04-02] MEDS: SOD CHLORIDE 0.45% 1,000 ML IV ×2 (08:03→18:00)
[2018-04-02] MEDS: LISINOPRIL 5 MG TAB PO (08:15)
[2018-04-02] MEDS: SUCRALFATE (100 MG/ML) 10ML CUP PO ×4 (08:15→20:45)
[2018-04-02] MEDS: METOPROLOL 25 MG TAB PO ×2 (08:15→20:21)
[2018-04-03] MEDS: ACCU-CHEK XX (01:28)
[2018-04-03] MEDS: SOD CHLORIDE 0.45% 1,000 ML IV ×3 (03:25→23:18)
[2018-04-03 05:27] LABS: ADD MAN DIFF? NO
[2018-04-03 05:35] LABS: BASOPHIL # 0.1 10^3/ul (0.0-0.1); EOSINOPHILS # 0.5 10^3/ul (0.0-0.5); HEMATOCRIT 40.1 % (42.0-52.0); LYMPHOCYTES # 2.2 10^3/ul (0.8-2.9); LYMPHOCYTES % 32.9 % (15.0-51.0); MEAN CORPUSCULAR HGB CONC 32.4 g/dl (32.0-37.0); MEAN CORPUSCULAR VOLUME 92.4 fl (82.0-101.0); MEAN PLATELET VOLUME 10.8 fl (7.4-10.4); MONOCYTE # 0.5 10^3/ul (0.3-0.9); MONOCYTES % 6.7 % (0.0-11.0); NEUTROPHIL # 3.5 10^3/ul (1.6-7.5); NEUTROPHILS % 52.3 % (39.0-77.0); PLATELET COUNT 290 10^3/UL (140-415); RED BLOOD COUNT 4.34 10^6/ul (4.70-6.10); RED CELL DISTRIBUTION WIDTH 13.3 % (11.5-14.5)
[2018-04-03 05:35] LABS: WHITE BLOOD COUNT 6.7 10^3/ul (4.8-10.8)
[2018-04-03] MEDS: PANTOPRAZOLE (EC) 40 MG TAB PO (05:36)
[2018-04-03] MEDS: INSULIN ASPART [NOVOLOG] 3 ML PEN SC ×4 (07:00→21:00)
[2018-04-03] MEDS: SUCRALFATE (100 MG/ML) 10ML CUP PO ×4 (09:17→21:45)
[2018-04-03] MEDS: METOPROLOL 25 MG TAB PO ×2 (09:18→21:00)
[2018-04-03] MEDS: LISINOPRIL 5 MG TAB PO (09:18)
[2018-04-03 12:09] LABS: ADD MAN DIFF? NO
[2018-04-03 12:12] LABS: WHITE BLOOD COUNT 8.2 10^3/ul (4.8-10.8)
[2018-04-03 12:12] LABS: BASOPHIL # 0.1 10^3/ul (0.0-0.1); BASOPHILS % 1.1 % (0.0-2.0); EOSINOPHILS # 0.6 10^3/ul (0.0-0.5); EOSINOPHILS % 7.9 % (0.0-7.0); HEMATOCRIT 39.6 % (42.0-52.0); HEMOGLOBIN 13.2 g/dl (14.0-18.0); LYMPHOCYTES # 2.4 10^3/ul (0.8-2.9); LYMPHOCYTES % 29.8 % (15.0-51.0); MEAN CORPUSCULAR HEMOGLOBIN 30.6 pg (29.0-33.0); MEAN CORPUSCULAR HGB CONC 33.3 g/dl (32.0-37.0); MEAN CORPUSCULAR VOLUME 91.9 fl (82.0-101.0); MEAN PLATELET VOLUME 10.3 fl (7.4-10.4); MONOCYTE # 0.7 10^3/ul (0.3-0.9); MONOCYTES % 9.1 % (0.0-11.0); NEUTROPHIL # 4.2 10^3/ul (1.6-7.5); NEUTROPHILS % 51.9 % (39.0-77.0); PLATELET COUNT 304 10^3/UL (140-415); RED BLOOD COUNT 4.31 10^6/ul (4.70-6.10); RED CELL DISTRIBUTION WIDTH 13.6 % (11.5-14.5)
[2018-04-03 18:10] LABS: ADD MAN DIFF? NO
[2018-04-03 18:16] LABS: BASOPHIL # 0.1 10^3/ul (0.0-0.1); BASOPHILS % 1.2 % (0.0-2.0); EOSINOPHILS # 0.6 10^3/ul (0.0-0.5); EOSINOPHILS % 7.6 % (0.0-7.0); HEMATOCRIT 40.7 % (42.0-52.0); HEMOGLOBIN 13.4 g/dl (14.0-18.0); LYMPHOCYTES # 2.4 10^3/ul (0.8-2.9); MEAN CORPUSCULAR HEMOGLOBIN 30.5 pg (29.0-33.0); MEAN CORPUSCULAR HGB CONC 32.9 g/dl (32.0-37.0); MEAN CORPUSCULAR VOLUME 92.5 fl (82.0-101.0); MEAN PLATELET VOLUME 10.5 fl (7.4-10.4); MONOCYTE # 0.7 10^3/ul (0.3-0.9); MONOCYTES % 8.8 % (0.0-11.0); NEUTROPHIL # 3.8 10^3/ul (1.6-7.5); NEUTROPHILS % 50.1 % (39.0-77.0); PLATELET COUNT 307 10^3/UL (140-415); RED CELL DISTRIBUTION WIDTH 13.3 % (11.5-14.5)
[2018-04-03 18:16] LABS: WHITE BLOOD COUNT 7.6 10^3/ul (4.8-10.8)
[2018-04-04] MEDS: ACCU-CHEK XX (00:54)
[2018-04-04] MEDS: PANTOPRAZOLE (EC) 40 MG TAB PO (06:35)
[2018-04-04] MEDS: INSULIN ASPART [NOVOLOG] 3 ML PEN SC ×4 (07:00→20:33)
[2018-04-04] MEDS: LISINOPRIL 5 MG TAB PO (08:51)
[2018-04-04] MEDS: SUCRALFATE (100 MG/ML) 10ML CUP PO ×4 (08:51→20:32)
[2018-04-04] MEDS: METOPROLOL 25 MG TAB PO ×2 (08:52→20:32)
[2018-04-04] MEDS: SOD CHLORIDE 0.45% 1,000 ML IV (13:52)
[2018-04-05] MEDS: ACCU-CHEK XX (01:18)
[2018-04-05 04:50] LABS: ADD MAN DIFF? NO
[2018-04-05 04:52] LABS: WHITE BLOOD COUNT 6.7 10^3/ul (4.8-10.8)
[2018-04-05 04:52] LABS: BASOPHIL # 0.1 10^3/ul (0.0-0.1); BASOPHILS % 1.2 % (0.0-2.0); EOSINOPHILS # 0.5 10^3/ul (0.0-0.5); EOSINOPHILS % 7.7 % (0.0-7.0); HEMATOCRIT 41.9 % (42.0-52.0); HEMOGLOBIN 13.7 g/dl (14.0-18.0); LYMPHOCYTES # 2.3 10^3/ul (0.8-2.9); LYMPHOCYTES % 34.5 % (15.0-51.0); MEAN CORPUSCULAR HEMOGLOBIN 30.1 pg (29.0-33.0); MEAN CORPUSCULAR HGB CONC 32.7 g/dl (32.0-37.0); MEAN CORPUSCULAR VOLUME 92.1 fl (82.0-101.0); MEAN PLATELET VOLUME 10.7 fl (7.4-10.4); MONOCYTE # 0.4 10^3/ul (0.3-0.9); MONOCYTES % 6.6 % (0.0-11.0); NEUTROPHIL # 3.3 10^3/ul (1.6-7.5); NEUTROPHILS % 49.7 % (39.0-77.0); PLATELET COUNT 298 10^3/UL (140-415); RED BLOOD COUNT 4.55 10^6/ul (4.70-6.10); RED CELL DISTRIBUTION WIDTH 13.5 % (11.5-14.5)
[2018-04-05 05:20] LABS: ANION GAP 17 (5-13); BLOOD UREA NITROGEN 20 mg/dl (7-20); CALCIUM 10.2 mg/dl (8.4-10.2); CARBON DIOXIDE 28 mmol/L (21-31); CHLORIDE 99 mmol/L (97-110); CREATININE 0.61 mg/dl (0.61-1.24); Estimated GFR > 60 mL/min (>60); GLUCOSE 114 mg/dl (70-220); MAGNESIUM 1.6 mg/dl (1.7-2.5); PHOSPHORUS 4.6 mg/dl (2.5-4.9); POTASSIUM 3.9 mmol/L (3.5-5.1); SODIUM 144 mmol/L (135-144)
[2018-04-05] MEDS: PANTOPRAZOLE (EC) 40 MG TAB PO (06:09)
[2018-04-05] MEDS: INSULIN ASPART [NOVOLOG] 3 ML PEN SC ×4 (08:00→22:00)
[2018-04-05] MEDS: LISINOPRIL 5 MG TAB PO (08:21)
[2018-04-05] MEDS: SUCRALFATE (100 MG/ML) 10ML CUP PO ×2 (08:21→13:03)
[2018-04-05] MEDS: METOPROLOL 25 MG TAB PO ×2 (08:22→22:00)
[2018-04-05] MEDS: MAGNESIUM SULFATE 1 GM/D5W 100 ML IVPB (15:55)
[2018-04-06] MEDS: ACCU-CHEK XX (01:52)
[2018-04-06] MEDS: PANTOPRAZOLE (EC) 40 MG TAB PO (05:19)
[2018-04-06] MEDS: INSULIN ASPART [NOVOLOG] 3 ML PEN SC ×4 (07:00→20:25)
[2018-04-06] MEDS: LISINOPRIL 5 MG TAB PO (08:21)
[2018-04-06] MEDS: METOPROLOL 25 MG TAB PO ×2 (08:22→20:26)
[2018-04-07] MEDS: ACCU-CHEK XX (01:43)
[2018-04-07] MEDS: PANTOPRAZOLE (EC) 40 MG TAB PO (05:41)
[2018-04-07] MEDS: INSULIN ASPART [NOVOLOG] 3 ML PEN SC ×4 (07:00→20:47)
[2018-04-07] MEDS: LISINOPRIL 5 MG TAB PO (08:24)
[2018-04-07] MEDS: METOPROLOL 25 MG TAB PO ×2 (08:24→20:42)
[2018-04-08] MEDS: ACCU-CHEK XX (02:00)
[2018-04-08 05:45] LABS: ADD MAN DIFF? NO
[2018-04-08 05:57] LABS: BASOPHIL # 0.1 10^3/ul (0.0-0.1); BASOPHILS % 0.7 % (0.0-2.0); EOSINOPHILS # 0.4 10^3/ul (0.0-0.5); EOSINOPHILS % 4.4 % (0.0-7.0); HEMATOCRIT 43.2 % (42.0-52.0); HEMOGLOBIN 14.2 g/dl (14.0-18.0); LYMPHOCYTES # 2.3 10^3/ul (0.8-2.9); LYMPHOCYTES % 28.6 % (15.0-51.0); MEAN CORPUSCULAR HGB CONC 32.9 g/dl (32.0-37.0); MEAN CORPUSCULAR VOLUME 91.3 fl (82.0-101.0); MEAN PLATELET VOLUME 10.8 fl (7.4-10.4); MONOCYTE # 0.4 10^3/ul (0.3-0.9); MONOCYTES % 5.4 % (0.0-11.0); NEUTROPHIL # 4.9 10^3/ul (1.6-7.5); NEUTROPHILS % 60.5 % (39.0-77.0); PLATELET COUNT 331 10^3/UL (140-415); RED BLOOD COUNT 4.73 10^6/ul (4.70-6.10); RED CELL DISTRIBUTION WIDTH 13.2 % (11.5-14.5)
[2018-04-08] MEDS: PANTOPRAZOLE (EC) 40 MG TAB PO (05:57)
[2018-04-08 06:25] LABS: ANION GAP 17 (5-13); BLOOD UREA NITROGEN 20 mg/dl (7-20); CALCIUM 10.5 mg/dl (8.4-10.2); CARBON DIOXIDE 24 mmol/L (21-31); CHLORIDE 101 mmol/L (97-110); CREATININE 0.61 mg/dl (0.61-1.24); Estimated GFR > 60 mL/min (>60); GLUCOSE 125 mg/dl (70-220); POTASSIUM 3.9 mmol/L (3.5-5.1); SODIUM 142 mmol/L (135-144)
[2018-04-08] MEDS: METOPROLOL 25 MG TAB PO ×2 (08:11→20:22)
[2018-04-08] MEDS: INSULIN ASPART [NOVOLOG] 3 ML PEN SC ×4 (08:12→20:21)
[2018-04-08] MEDS: LISINOPRIL 5 MG TAB PO (08:12)
[2018-04-09] MEDS: ACCU-CHEK XX (01:34)
[2018-04-09] MEDS: PANTOPRAZOLE (EC) 40 MG TAB PO (06:04)
[2018-04-09] MEDS: INSULIN ASPART [NOVOLOG] 3 ML PEN SC ×4 (07:00→21:00)
[2018-04-09] MEDS: METOPROLOL 25 MG TAB PO ×2 (08:34→21:00)
[2018-04-09] MEDS: LISINOPRIL 5 MG TAB PO (08:34)
[2018-04-10] MEDS: ACCU-CHEK XX (02:00)
[2018-04-10] MEDS: PANTOPRAZOLE (EC) 40 MG TAB PO (05:35)
[2018-04-10] MEDS: INSULIN ASPART [NOVOLOG] 3 ML PEN SC ×4 (07:00→21:00)
[2018-04-10] MEDS: METOPROLOL 25 MG TAB PO ×2 (08:39→21:00)
[2018-04-10] MEDS: LISINOPRIL 5 MG TAB PO (08:48)
[2018-04-11] MEDS: ACCU-CHEK XX (02:00)
[2018-04-11] MEDS: PANTOPRAZOLE (EC) 40 MG TAB PO (05:44)
[2018-04-11] MEDS: INSULIN ASPART [NOVOLOG] 3 ML PEN SC ×4 (07:00→20:32)
[2018-04-11] MEDS: METOPROLOL 25 MG TAB PO ×2 (08:10→20:19)
[2018-04-11] MEDS: LISINOPRIL 5 MG TAB PO (08:10)
[2018-04-12] MEDS: ACCU-CHEK XX (01:36)
[2018-04-12] MEDS: PANTOPRAZOLE (EC) 40 MG TAB PO (05:10)
[2018-04-12] MEDS: INSULIN ASPART [NOVOLOG] 3 ML PEN SC ×4 (07:00→20:54)
[2018-04-12] MEDS: METOPROLOL 25 MG TAB PO ×2 (08:13→20:44)
[2018-04-12] MEDS: LISINOPRIL 5 MG TAB PO (08:14)
[2018-04-13] MEDS: ACCU-CHEK XX (02:00)
[2018-04-13] MEDS: PANTOPRAZOLE (EC) 40 MG TAB PO (05:20)
[2018-04-13] MEDS: INSULIN ASPART [NOVOLOG] 3 ML PEN SC (07:00)
[2018-04-13] MEDS: METOPROLOL 25 MG TAB PO ×2 (08:24→20:35)
[2018-04-14] MEDS: PANTOPRAZOLE (EC) 40 MG TAB PO (05:44)
[2018-04-14] MEDS: METOPROLOL 25 MG TAB PO ×2 (08:12→20:31)
[2018-04-15] MEDS: PANTOPRAZOLE (EC) 40 MG TAB PO (06:02)
[2018-04-15] MEDS: METOPROLOL 25 MG TAB PO ×2 (09:58→20:31)
[2018-04-16] MEDS: PANTOPRAZOLE (EC) 40 MG TAB PO (06:05)
[2018-04-16] MEDS: METOPROLOL 25 MG TAB PO ×2 (09:00→21:00)
[2018-04-16 11:00] LABS: ADD MAN DIFF? NO
[2018-04-16 11:10] LABS: WHITE BLOOD COUNT 5.9 10^3/ul (4.8-10.8)
[2018-04-16 11:10] LABS: BASOPHIL # 0.1 10^3/ul (0.0-0.1); EOSINOPHILS # 0.3 10^3/ul (0.0-0.5); EOSINOPHILS % 4.2 % (0.0-7.0); HEMATOCRIT 42.5 % (42.0-52.0); HEMOGLOBIN 14.4 g/dl (14.0-18.0); LYMPHOCYTES # 1.9 10^3/ul (0.8-2.9); LYMPHOCYTES % 31.4 % (15.0-51.0); MEAN CORPUSCULAR HEMOGLOBIN 30.1 pg (29.0-33.0); MEAN CORPUSCULAR HGB CONC 33.9 g/dl (32.0-37.0); MEAN CORPUSCULAR VOLUME 88.9 fl (82.0-101.0); MEAN PLATELET VOLUME 10.4 fl (7.4-10.4); MONOCYTE # 0.4 10^3/ul (0.3-0.9); MONOCYTES % 7.1 % (0.0-11.0); NEUTROPHIL # 3.3 10^3/ul (1.6-7.5); NEUTROPHILS % 56.1 % (39.0-77.0); PLATELET COUNT 381 10^3/UL (140-415); RED BLOOD COUNT 4.78 10^6/ul (4.70-6.10)
[2018-04-16 11:27] LABS: ANION GAP 13 (5-13); BLOOD UREA NITROGEN 16 mg/dl (7-20); CALCIUM 10.4 mg/dl (8.4-10.2); CARBON DIOXIDE 27 mmol/L (21-31); CHLORIDE 100 mmol/L (97-110); CREATININE 0.58 mg/dl (0.61-1.24); Estimated GFR > 60 mL/min (>60); GLUCOSE 124 mg/dl (70-220); MAGNESIUM 1.6 mg/dl (1.7-2.5); PHOSPHORUS 4.4 mg/dl (2.5-4.9); POTASSIUM 3.2 mmol/L (3.5-5.1); SODIUM 140 mmol/L (135-144)
[2018-04-16] MEDS: POTASSIUM CHLORIDE 20 MEQ POWDER FOR ORAL SOLN PO (12:21)
[2018-04-16] MEDS: MAGNESIUM SULFATE 2 GM/50 ML 50 ML IVPB (14:14)
[2018-04-16] MEDS: traMADol 50 MG TAB PO (19:39)
[2018-04-17] MEDS: PANTOPRAZOLE (EC) 40 MG TAB PO (06:02)
[2018-04-17] MEDS: METOPROLOL 25 MG TAB PO ×2 (08:23→21:00)
[2018-04-17 10:13] LABS: ANION GAP 11 (5-13); BLOOD UREA NITROGEN 15 mg/dl (7-20); CALCIUM 10.2 mg/dl (8.4-10.2); CARBON DIOXIDE 25 mmol/L (21-31); CHLORIDE 104 mmol/L (97-110); CREATININE 0.52 mg/dl (0.61-1.24); Estimated GFR > 60 mL/min (>60); GLUCOSE 112 mg/dl (70-220); POTASSIUM 3.3 mmol/L (3.5-5.1); SODIUM 140 mmol/L (135-144)
[2018-04-17] MEDS: traMADol 50 MG TAB PO (12:00)
[2018-04-18] MEDS: PANTOPRAZOLE (EC) 40 MG TAB PO (05:59)
[2018-04-18] MEDS: METOPROLOL 25 MG TAB PO ×2 (08:25→21:56)
[2018-04-19] MEDS: PANTOPRAZOLE (EC) 40 MG TAB PO (06:02)
[2018-04-19] MEDS: METOPROLOL 25 MG TAB PO ×2 (08:50→21:42)
[2018-04-20 06:06] LABS: ADD MAN DIFF? NO
[2018-04-20 06:09] LABS: WHITE BLOOD COUNT 6.3 10^3/ul (4.8-10.8)
[2018-04-20 06:09] LABS: BASOPHILS % 0.6 % (0.0-2.0); EOSINOPHILS # 0.3 10^3/ul (0.0-0.5); EOSINOPHILS % 5.4 % (0.0-7.0); HEMATOCRIT 39.7 % (42.0-52.0); HEMOGLOBIN 13.7 g/dl (14.0-18.0); LYMPHOCYTES # 2.4 10^3/ul (0.8-2.9); LYMPHOCYTES % 38.7 % (15.0-51.0); MEAN CORPUSCULAR HEMOGLOBIN 30.2 pg (29.0-33.0); MEAN CORPUSCULAR HGB CONC 34.5 g/dl (32.0-37.0); MEAN CORPUSCULAR VOLUME 87.6 fl (82.0-101.0); MEAN PLATELET VOLUME 9.9 fl (7.4-10.4); MONOCYTE # 0.4 10^3/ul (0.3-0.9); MONOCYTES % 5.9 % (0.0-11.0); NEUTROPHIL # 3.1 10^3/ul (1.6-7.5); NEUTROPHILS % 49.2 % (39.0-77.0); PLATELET COUNT 319 10^3/UL (140-415); RED BLOOD COUNT 4.53 10^6/ul (4.70-6.10)
[2018-04-20] MEDS: PANTOPRAZOLE (EC) 40 MG TAB PO (06:18)
[2018-04-20 06:36] LABS: PHOSPHORUS 4.3 mg/dl (2.5-4.9)
[2018-04-20 06:36] LABS: MAGNESIUM 1.7 mg/dl (1.7-2.5)
[2018-04-20 06:41] LABS: ANION GAP 11 (5-13); BLOOD UREA NITROGEN 15 mg/dl (7-20); CALCIUM 10.2 mg/dl (8.4-10.2); CARBON DIOXIDE 27 mmol/L (21-31); CHLORIDE 104 mmol/L (97-110); Estimated GFR > 60 mL/min (>60); GLUCOSE 113 mg/dl (70-220); POTASSIUM 3.2 mmol/L (3.5-5.1); SODIUM 142 mmol/L (135-144)
[2018-04-20] MEDS: METOPROLOL 25 MG TAB PO ×2 (08:39→21:22)
[2018-04-20] MEDS: POTASSIUM CHLORIDE (SR) 20 MEQ TAB PO (16:31)
[2018-04-21] MEDS: PANTOPRAZOLE (EC) 40 MG TAB PO (06:13)
[2018-04-21] MEDS: METOPROLOL 25 MG TAB PO ×2 (09:00→19:46)
[2018-04-21] MEDS: traMADol 50 MG TAB PO (19:52)
[2018-04-22] MEDS: PANTOPRAZOLE (EC) 40 MG TAB PO (05:26)
[2018-04-22] MEDS: METOPROLOL 25 MG TAB PO ×2 (08:34→21:00)
[2018-04-23] MEDS: METOPROLOL 25 MG TAB PO ×2 (09:00→21:00)
[2018-04-24] MEDS: METOPROLOL 25 MG TAB PO ×2 (09:10→20:58)
[2018-04-24] MEDS: [UNRECOGNIZED DRUG - OTHER] XX ×2 (13:00→20:59)
[2018-04-25] MEDS: [UNRECOGNIZED DRUG - OTHER] XX ×2 (05:00→13:00)
[2018-04-25] MEDS: METOPROLOL 25 MG TAB PO ×2 (09:11→20:37)
[2018-04-25] MEDS: traMADol 50 MG TAB PO (19:45)
[2018-04-26] MEDS: METOPROLOL 25 MG TAB PO ×2 (09:00→20:25)
[2018-04-26] MEDS: traMADol 50 MG TAB PO ×2 (15:21→20:24)
[2018-04-27 06:40] LABS: ADD MAN DIFF? NO
[2018-04-27 06:45] LABS: WHITE BLOOD COUNT 6.2 10^3/ul (4.8-10.8)
[2018-04-27 06:45] LABS: BASOPHIL # 0.1 10^3/ul (0.0-0.1); EOSINOPHILS # 0.6 10^3/ul (0.0-0.5); EOSINOPHILS % 9.4 % (0.0-7.0); HEMATOCRIT 39.3 % (42.0-52.0); HEMOGLOBIN 13.5 g/dl (14.0-18.0); LYMPHOCYTES # 2.7 10^3/ul (0.8-2.9); LYMPHOCYTES % 44.1 % (15.0-51.0); MEAN CORPUSCULAR HEMOGLOBIN 30.2 pg (29.0-33.0); MEAN CORPUSCULAR HGB CONC 34.4 g/dl (32.0-37.0); MEAN CORPUSCULAR VOLUME 87.9 fl (82.0-101.0); MEAN PLATELET VOLUME 10.2 fl (7.4-10.4); MONOCYTE # 0.4 10^3/ul (0.3-0.9); NEUTROPHIL # 2.4 10^3/ul (1.6-7.5); NEUTROPHILS % 39.3 % (39.0-77.0); PLATELET COUNT 291 10^3/UL (140-415); RED BLOOD COUNT 4.47 10^6/ul (4.70-6.10); RED CELL DISTRIBUTION WIDTH 12.8 % (11.5-14.5)
[2018-04-27 07:13] LABS: ANION GAP 15 (5-13); BLOOD UREA NITROGEN 17 mg/dl (7-20); CALCIUM 10.1 mg/dl (8.4-10.2); CARBON DIOXIDE 30 mmol/L (21-31); CHLORIDE 96 mmol/L (97-110); Estimated GFR > 60 mL/min (>60); GLUCOSE 93 mg/dl (70-220); POTASSIUM 3.3 mmol/L (3.5-5.1); SODIUM 141 mmol/L (135-144)
[2018-04-27 07:24] LABS: MAGNESIUM 1.7 mg/dl (1.7-2.5)
[2018-04-27 07:24] LABS: PHOSPHORUS 4.9 mg/dl (2.5-4.9)
[2018-04-27] MEDS: METOPROLOL 25 MG TAB PO ×2 (08:31→20:45)
[2018-04-27] MEDS: traMADol 50 MG TAB PO ×2 (08:44→20:46)
[2018-04-27] MEDS: POTASSIUM CHLORIDE 20 MEQ POWDER FOR ORAL SOLN PO (14:21)
[2018-04-28] MEDS: METOPROLOL 25 MG TAB PO ×2 (08:35→20:29)
[2018-04-29] MEDS: METOPROLOL 25 MG TAB PO ×2 (08:13→20:06)
[2018-04-29] MEDS: traMADol 50 MG TAB PO (15:09)
[2018-04-30] MEDS: METOPROLOL 25 MG TAB PO (08:25)
[2018-04-30] MEDS: INFLUENZA VIRUS VACCINE 0.5 ML (DISPENSING) IM* (11:54)
[2018-04-30] MEDS: ASPIRIN 81 MG TAB PO (13:14)
[2018-04-30] MEDS ORDERED: ATORVASTATIN 40 MG TAB PO (21:00)
== END 2018-04-30 13:50 | DRG 871 ==
LOC: ICU 21:39 → TEL 02-25 20:05 → 2NE 03-01 03:01 → E/R 20:02
PROVIDERS: Family Medicine
PROC: 02HV33Z Insertion of Infusion Device into Superior Vena Cava, Percutaneous Approach (ICD-10-PCS; principal; 2018-03-05 14:00)
PROC: 06HY33Z Insertion of Infusion Device into Lower Vein, Percutaneous Approach (ICD-10-PCS; 2018-03-05 14:00)
PROC: 0BH17EZ Insertion of Endotracheal Airway into Trachea, Via Natural or Artificial Opening (ICD-10-PCS; 2018-03-05 14:00)
PROC: 5A1945Z Respiratory Ventilation, 24-96 Consecutive Hours (ICD-10-PCS; 2018-03-05 14:00)
PROC: 0DB68ZX Excision of Stomach, Via Natural or Artificial Opening Endoscopic, Diagnostic (ICD-10-PCS; 2018-03-05 14:00)
PROC: 0DJD8ZZ Inspection of Lower Intestinal Tract, Via Natural or Artificial Opening Endoscopic (ICD-10-PCS; 2018-03-05 14:00)
PROC: 30233N1 Transfusion of Nonautologous Red Blood Cells into Peripheral Vein, Percutaneous Approach (ICD-10-PCS; 2018-03-05 14:00)
PROC: 5A1D70Z Performance of Urinary Filtration, Intermittent, Less than 6 Hours Per Day (ICD-10-PCS; 2018-03-05 14:00)
DX: A41.9 Sepsis, unspecified organism (principal); R65.21 Severe sepsis with septic shock; G92 Toxic encephalopathy; K72.00 Acute and subacute hepatic failure without coma; J96.01 Acute respiratory failure with hypoxia; I21.A1 Myocardial infarction type 2; N17.0 Acute kidney failure with tubular necrosis; J18.9 Pneumonia, unspecified organism; M62.82 Rhabdomyolysis; E87.2 Acidosis; K62.6 Ulcer of anus and rectum; D68.9 Coagulation defect, unspecified; K62.5 Hemorrhage of anus and rectum; T82.7XXA Infection and inflammatory reaction due to other cardiac and vascular devices, implants and grafts, initial encounter; T43.621A Poisoning by amphetamines, accidental (unintentional), initial encounter; T40.2X1A Poisoning by other opioids, accidental (unintentional), initial encounter; E86.0 Dehydration; T40.7X1A Poisoning by cannabis (derivatives), accidental (unintentional), initial encounter; T51.91XA Toxic effect of unspecified alcohol, accidental (unintentional), initial encounter; E16.2 Hypoglycemia, unspecified; D64.9 Anemia, unspecified; E87.5 Hyperkalemia; M21.371 Foot drop, right foot; E83.51 Hypocalcemia; K21.0 Gastro-esophageal reflux disease with esophagitis; F19.90 Other psychoactive substance use, unspecified, uncomplicated; K29.00 Acute gastritis without bleeding; G62.9 Polyneuropathy, unspecified; T51.0X1A Toxic effect of ethanol, accidental (unintentional), initial encounter; J81.1 Chronic pulmonary edema; Y83.8 Other surgical procedures as the cause of abnormal reaction of the patient, or of later complication, without mention of misadventure at the time of the procedure; Y92.238 Other place in hospital as the place of occurrence of the external cause; Y92.481 Parking lot as the place of occurrence of the external cause
CPT/HCPCS: 31500; 36430; 36600; 70450; 70551; 71045; 72141; 73630; 76705; 76937; 80048; 80053; 80076; 80202; 80307; 81001; 82140; 82306; 82533; 82550; 82553; 82607; 82728; 82803; 82962; 83540; 83605; 83735; 84100; 84105; 84132; 84443; 84484; 84560; 85025; 85049; 85362; 85378; 85384; 85610; 85670; 85730; 86704; 86709; 86803; 86850; 86900; 86901; 86920; 87040; 87070; 87081; 87086; 87340; 87400; 88305; 88312; 90686; 90935; 92526; 92610; 93005; 93306; 93970; 94002; 94003; 94770; 96365; 96375; 97110; 97116; 97161; 97167; 97530; 97535; 99291-25